=== PATIENT | female | born 1950 | race Caucasian/White ===

== ENCOUNTER 2017-12-12 11:26 | Outpatient (CLI) | payer MEDICARE ==
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
== END 2017-12-12 11:27 | disposition home or self-care (01) ==
LOC: MRI 11:26
PROVIDERS: ATTEND Orthopaedic Surgery
DX: M47.896 Other spondylosis, lumbar region (principal); M99.83 Other biomechanical lesions of lumbar region
CPT/HCPCS: 72148

== ENCOUNTER 2018-11-16 13:47 | Inpatient (IN) | payer MEDICARE, OTHER ==
[~2018-11-16 13:47] MED LIST: ISOVUE-370 76%-LOCM 1 ML ONE; Iopamidol 370 76% 50 ML VIAL FS ONE
[2018-11-16] MEDS ORDERED: Morphine 4 MG/ML VIAL ONE (14:43)
[2018-11-16] MEDS ORDERED: Ondansetron PF 4 MG/2 ML Vial ONE ×2 (14:43→19:02)
[2018-11-16 15:08] LABS: #Basophils 0.1 thou/uL (0.0-0.2); #Eosinphils 0.9 thou/uL (0.0-0.7); #Lymphocytes 0.9 thou/uL (1.20-3.40); #Monocytes 0.7 thou/uL (0.11-0.59); #Neutrophils 9.6 thou/uL (1.40-6.50); %Basophils 0.5 % (0.0-1.0); %Eosinophils 7.2 % (0.0-10.0); %Lymphocytes 7.1 % (21.0-51.0); %Monocytes 5.4 % (0.0-10.0); %Neutrophils 79.9 % (42.0-75.0); Hemoglobin 15.6 g/dL (12.0-16.0); Mean Corpuscular HGB CONC 34.9 g/dL (32.0-36.0); Mean Corpuscular Hemoglobin 34.3 pg (27.0-31.0); Mean Corpuscular Volume 98.4 fL (78.0-98.0); Platelet Count 212 thou/uL (130-400); Red Blood Cell (RBC) Count 4.56 mill/uL (4.20-5.40)
[2018-11-16 16:56] LABS: Albumin 4.5 g/dL (3.4-4.8)
[2018-11-16 16:57] LABS: Chloride 94 mmol/L (98-107); Potassium 4.1 mmol/L (3.5-5.1); Sodium 130 mmol/L (136-145)
[2018-11-16 16:58] LABS: Calcium 9.8 mg/dL (7.8-10.44); Glucose 424 mg/dL (80-115)
[2018-11-16 16:59] LABS: Protein, Total 7.5 g/dL (6.0-8.3)
[2018-11-16 17:00] LABS: Anion Gap 16 mmol/L (10-20); Bilirubin, Total 0.7 mg/dL (0.2-1.2); Carbon Dioxide 24 mmol/L (23-31)
[2018-11-16 17:01] LABS: Alkaline Phosphatase 128 U/L (40-150)
[2018-11-16 17:02] LABS: Calc. Creatinine Clearance 0 mL/min (70-130); Estimated GFR-MDRD 54
[2018-11-16 17:03] LABS: BUN (Urea Nitrogen) 9 mg/dL (9.8-20.1)
[2018-11-16 17:04] LABS: ALT (SGPT) 23 U/L (8-55); AST (SGOT) 16 U/L (5-34); Lipase 18 U/L (8-78)
--- NOTE | 2018-11-16 18:02 | RAD ---
PORTABLE CHEST: History: Nausea, vomiting, rectal bleeding. FINDINGS: Heart size is within normal limits. There are atherosclerotic changes of the aorta. The lungs are kristen ar of infiltrative process. No significant bony findings. IMPRESSION: No active intrathoracic disease. POS: [facility]
--- NOTE | 2018-11-16 18:11 | CT ---
ABDOMEN CT WITH CONTRAST PELVIC CT WITH CONTRAST: History: Intermittent rectal bleeding x 5 days. Left lower quadrant cramping. FINDINGS: ABDOMEN CT: Lung bases are clear. Normal heart size. Normal caliber aorta. Patent portal vein. Unremarkable gallbladder. Liver, spleen, pancreas, and adrenal glands have appropriate enhancement. No gastrohepatic, retrocrural or periportal lymphadenopathy. Symmetric enhancement of the kidneys. Bilaterally, no obstructive uropathy. No mesenteric mass, lymphadenopathy, or free air. There is fluid tracking along the left pericolic gu tter. Gastric mucosa, duodenum, and multiple normal caliber small bowel loops. Unremarkable ileocecal junct ion. Normal caliber appendix. There is mucosal thickening, bowel wall thickening, and pericolonic fat stranding involving the distal transverse colon, splenic flexure, and proximal to mid descending col on. Long segment involvement favors an infectious colitis. No associated obstruction. Distally, the c olon is decompressed. CT PELVIS: Uterus is surgically absent. No pelvic mass, lymphadenopathy, free air or free fluid. Limited evaluat ion of the pelvis due to beam attenuation artifact from bilateral hip prostheses. OSSEOUS STRUCTURES: No lytic or blastic lesions. IMPRESSION: 1. Left colon colitis. Given the distribution an infectious process is favored. Inflammatory or ische zach processes are less favored but cannot be entirely excluded. Colonoscopy when clinically warranted . 2. Normal caliber appendix. POS: [facility]
[2018-11-16 18:19] LABS: Prothrombin Time 13.1 SEC (12.0-14.7)
[2018-11-16] MEDS ORDERED: HumaLOG 300 UNITS/3 ML VIAL SC PRN (20:14)
[2018-11-16] MEDS ORDERED: Dextrose 5% in Water 1,000 ML IV PRN (20:14)
[2018-11-16] MEDS ORDERED: Dextrose 50% Abboject 50 ML SYRINGE SLOW IVP PRN (20:14)
[2018-11-16] MEDS ORDERED: metroNIDAZOLE 500 MG/100 ML BAG ONE (20:15)
--- NOTE | 2018-11-16 21:26 | PDOC.EVN ---
Event Note - Event Note Event Note: [id number] P dictated.
[2018-11-16] MEDS ORDERED: Promethazine HCl 25 MG/ML VIAL IM/IV SCH (22:30)
[2018-11-16] MEDS: Famotidine/PF 20 mg/2ml Vial SLOW IVP SCH (22:35)
[2018-11-16] MEDS: Cefepime 2 GM in Sodium Chloride 0.9% 100 ML IVPB SCH (22:55)
[2018-11-17] MEDS: metroNIDAZOLE 500 MG in Premix Bag 1 BAG IVPB SCH ×4 (00:21→17:02)
--- NOTE | 2018-11-17 00:39 | HP ---
CHIEF COMPLAINT: Rectal bleeding. HISTORY OF PRESENT ILLNESS: Ms. Hendrix is a 68-year-old female, with past medical history of osteoarthritis, diabetes, hyperlipidemia, hypertension, among others, presents to the emergency room with lower abdominal pain and rectal bleeding. The pain is more worse on the left side. The patient also reported subjective fever. She is not on any blood thinners. PAST MEDICAL HISTORY: 1. Diabetes mellitus. 2. Osteoarthritis. 3. Hyperlipidemia. 4. Hypertension. 5. Asthma. PAST SURGICAL HISTORY: 1. Lumbar L1-S1 ablation. 2. Right hip replacement. 3. Hysterectomy. 4. Depression. SOCIAL HISTORY: She drinks 1 drink a day alcohol; use marijuana, for pain. ALLERGIES: TO PENICILLIN. HOME MEDICATIONS: Please see home medication reconciliation form for updated medications. FAMILY HISTORY: Reviewed and noncontributory. REVIEW OF SYSTEMS: Review of 14 systems negative except what is mentioned in History of Present Illness. PHYSICAL EXAMINATION: GENERAL: The patient is awake, alert, in moderate distress. VITAL SIGNS: Blood pressure is 146/90, pulse is 101, respiratory rate is 20, temperature is 98.7. HEAD AND NECK: Normocephalic, atraumatic. Neck is supple. No JVD. CHEST: Fair bilateral air entry. HEART: S1, S2. Regular. ABDOMEN: Soft with lower abdominal tenderness. Bowel sounds present. NEUROLOGIC: Awake, alert, oriented x3. PSYCH: Normal mood. EXTREMITIES: No clubbing or cyanosis. LABORATORY DATA: WBC count is 12.0, hemoglobin 15.6, platelets 212. Sodium is 130, potassium is 4.1, BUN is 9, creatinine 1.0. INR is 1.0. CT abdomen and pelvis showed left colon colitis. Differential diagnosis is inflammatory versus infectious. ASSESSMENT: 1. Acute lower gastrointestinal bleeding probably secondary to infectious/inflammatory colitis. 2. Acute colitis. 3. Diabetes mellitus with hyperglycemia. 4. Hypertension. 5. Hyperlipidemia. PLAN: 1. Admit. 2. Keep n.p.o. 3. IV antibiotics. 4. IV fluids. 5. Consult GI for evaluation and further recommendations. 6. Reconcile home medications. 7. DVT prophylaxis, SCDs/early ambulation. 8. Expected length of stay, 2 midnights or more. Job ID: [id number]
[2018-11-17] MEDS: Sodium Chloride 0.9% 1,000 ML IV SCH ×3 (01:00→16:28)
[2018-11-17 06:05] LABS: Anion Gap 14 mmol/L (10-20); BUN (Urea Nitrogen) 9 mg/dL (9.8-20.1); Calc. Creatinine Clearance 101 mL/min (70-130); Calcium 8.5 mg/dL (7.8-10.44); Carbon Dioxide 22 mmol/L (23-31); Chloride 100 mmol/L (98-107); Estimated GFR-MDRD 69; Glucose 254 mg/dL (80-115); Sodium 132 mmol/L (136-145)
[2018-11-17 06:20] LABS: #Eosinphils 0.7 thou/uL (0.0-0.7); #Lymphocytes 1.1 thou/uL (1.20-3.40); #Monocytes 0.7 thou/uL (0.11-0.59); %Basophils 0.3 % (0.0-1.0); %Eosinophils 7.7 % (0.0-10.0); %Lymphocytes 11.3 % (21.0-51.0); %Monocytes 7.6 % (0.0-10.0); %Neutrophils 73.2 % (42.0-75.0); Mean Corpuscular HGB CONC 34.9 g/dL (32.0-36.0); Mean Corpuscular Hemoglobin 33.7 pg (27.0-31.0); Mean Corpuscular Volume 96.6 fL (78.0-98.0); Mean Platelet Volume 7.4 fL (7.4-10.4); Platelet Count 172 thou/uL (130-400); RBC Distribution Width 11.8 % (11.5-14.5); Red Blood Cell (RBC) Count 4.15 mill/uL (4.20-5.40); White Blood Cell (WBC) Count 9.5 thou/uL (4.8-10.8)
[2018-11-17] MEDS: Cefepime 2 GM in Sodium Chloride 0.9% 100 ML IVPB SCH ×2 (08:57→20:54)
[2018-11-17] MEDS: Famotidine/PF 20 mg/2ml Vial SLOW IVP SCH (08:58)
[2018-11-17] MEDS ORDERED: Prevnar 13-Val Conj/PF 0.5 ML SYRINGE IM ONE (09:00)
--- NOTE | 2018-11-17 14:49 | PDOC.HOSPP ---
- Subjective Subjective: Seen and examined. Denies further bleeding sense admission. Left-sided lower quadrant abdominal pain improved. Patient states she had G.I. bleeding in the past though it was not as severe as this. Patient states that she has had colonoscopies every five years and has had several polyps removed in the past, states she is due for a colonoscopy in the next month. - Objective Vital Signs & Weight: Vital Signs (12 hours) Temp Pulse Resp BP Pulse Ox 11/17/18 07:35 99.4 F 75 16 138/68 96 11/17/18 04:00 97.7 F 77 18 119/66 99 Weight Admit Weight 218 lb 4.122 oz Weight 218 lb 4.122 oz I&O: 11/16/18 11/17/18 11/18/18 06:59 06:59 06:59 Intake Total 989 Balance 989 Result Diagrams: 11/17/18 05:37 11/17/18 05:37 Additional Labs: Accuchecks 11/17/18 12:39 POC Glucose 235 H Hospitalist ROS - Review of Systems All other systems reviewed; all pertinent +/- noted in HPI/Subj - Medication Medications: Active Medications Generic Name Dose Route Start Last Admin Trade Name Freq PRN Reason Stop Dose Admin Famotidine 20 mg 11/16/18 21:00 11/17/18 08:58 Pepcid SLOW IVP 20 mg Q12HR BAUTISTA Administration Sodium Chloride 1,000 mls @ 100 mls/hr 11/16/18 20:15 11/17/18 13:43 Normal Saline 0.9% IV 1,000 mls .Q10H BAUTISTA Administration Cefepime HCl 2 gm/ Sodium 100 mls @ 200 mls/hr 11/16/18 21:00 11/17/18 08:57 Chloride IVPB 100 mls Q12HR BAUTISTA Administration Metronidazole 500 mg/ Device 100 mls @ 100 mls/hr 11/16/18 23:59 11/17/18 12: 28 IVPB 100 mls Q6HR BAUTISTA Administration - Exam General Appearance: NAD, awake alert Eye: anicteric sclera ENT: no oropharyngeal lesions, moist mucosa Neck: supple, symmetric, no lymphadenopathy Heart: no murmur, no gallops, no rubs Respiratory: CTAB, no wheezes, no rales Gastrointestinal: soft, non-distended, normal bowel sounds, tender to palpation (Left lower quadrant) Extremities: no edema Skin: no rashes Skin - other findings: Skin lesions on face, healing furuncles Neurological: cranial nerve grossly intact, no weakness, no focal deficits Musculoskeletal: no muscle wasting Psychiatric: normal affect, A&O x 3 Hosp A/P (1) Colitis Code(s): K52.9 - NONINFECTIVE GASTROENTERITIS AND COLITIS, UNSPECIFIED Status : Acute (2) Diarrhea Code(s): R19.7 - DIARRHEA, UNSPECIFIED Status: Acute (3) GI bleed Code(s): K92.2 - GASTROINTESTINAL HEMORRHAGE, UNSPECIFIED Status: Acute (4) Diabetes mellitus, insulin dependent (IDDM), uncontrolled Code(s): E11.65 - TYPE 2 DIABETES MELLITUS WITH HYPERGLYCEMIA; Z79.4 - S[facility]IVING (CURRENT) USE OF INSULIN Status: Acute (5) HTN (hypertension) Code(s): I10 - ESSENTIAL (PRIMARY) HYPERTENSION Status: Acute (6) HLD (hyperlipidemia) Code(s): E78.5 - HYPERLIPIDEMIA, UNSPECIFIED Status: Acute - Plan Plan: medical unit with telemetry gastroenterology consultation, recommendations appreciated PPI may require endoscopy for definitive diagnosis/treatment of G.I. bleeding hemoglobin has not significantly dropped sense arrival infectious causes of diarrhea ordered start long and short acting insulin for glucose control continue other home medications is able replace electrolytes as needed
[2018-11-17] MEDS ORDERED: HumaLOG 300 UNITS/3 ML VIAL SC PRN ×2 (14:50)
[2018-11-17] MEDS: Mometasone/Formoterol 120 PUFF INHALER INH SCH (18:38)
[2018-11-17] MEDS: Atorvastatin Calcium 20 MG TAB PO SCH (20:53)
[2018-11-17] MEDS: Insulin Glargine 25 UNITS in Pre-Filled Syringe 1 EACH SC SCH (20:54)
[2018-11-17] MEDS ORDERED: INSULIN DETEMIR 25 UNIT SQ SCH (21:00)
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
[2018-11-18] MEDS: metroNIDAZOLE 500 MG in Premix Bag 1 BAG IVPB SCH ×5 (01:46→23:34)
[2018-11-18] MEDS: Levothyroxine 150 MCG TAB PO SCH (05:31)
[2018-11-18] MEDS: Sodium Chloride 0.9% 1,000 ML IV SCH ×2 (05:32→21:01)
[2018-11-18] MEDS: Mometasone/Formoterol 120 PUFF INHALER INH SCH ×2 (07:34→18:33)
[2018-11-18] MEDS: Losartan 25 MG TAB PO SCH (08:46)
[2018-11-18] MEDS: Insulin Glargine 25 UNITS in Pre-Filled Syringe 1 EACH SC SCH ×2 (08:47→20:53)
[2018-11-18] MEDS: Cefepime 2 GM in Sodium Chloride 0.9% 100 ML IVPB SCH ×2 (08:47→20:53)
[2018-11-18] MEDS ORDERED: Non-Formulary Item 1 EACH (Omeprazole [Omeprazole] 40 MG) PO SCH (09:00)
[2018-11-18] MEDS: Ondansetron PF 4 MG/2 ML Vial IVP PRN (11:35)
[2018-11-18 11:56] LABS: #Eosinphils 0.7 thou/uL (0.0-0.7); #Lymphocytes 0.7 thou/uL (1.20-3.40); #Monocytes 0.4 thou/uL (0.11-0.59); %Basophils 0.6 % (0.0-1.0); %Eosinophils 10.8 % (0.0-10.0); %Lymphocytes 9.6 % (21.0-51.0); %Monocytes 6.4 % (0.0-10.0); %Neutrophils 72.6 % (42.0-75.0); Hemoglobin 13.2 g/dL (12.0-16.0); Mean Corpuscular HGB CONC 34.6 g/dL (32.0-36.0); Mean Corpuscular Hemoglobin 34.4 pg (27.0-31.0); Mean Corpuscular Volume 99.6 fL (78.0-98.0); Mean Platelet Volume 7.1 fL (7.4-10.4); Platelet Count 209 thou/uL (130-400); RBC Distribution Width 11.9 % (11.5-14.5); Red Blood Cell (RBC) Count 3.84 mill/uL (4.20-5.40); White Blood Cell (WBC) Count 6.9 thou/uL (4.8-10.8)
[2018-11-18 12:29] LABS: ALT (SGPT) 19 U/L (8-55); AST (SGOT) 15 U/L (5-34); Albumin 3.7 g/dL (3.4-4.8); Alkaline Phosphatase 91 U/L (40-150); Anion Gap 10 mmol/L (10-20); BUN (Urea Nitrogen) 7 mg/dL (9.8-20.1); Bilirubin, Total 0.4 mg/dL (0.2-1.2); Calc. Creatinine Clearance 87 mL/min (70-130); Calcium 8.8 mg/dL (7.8-10.44); Carbon Dioxide 26 mmol/L (23-31); Chloride 103 mmol/L (98-107); Estimated GFR-MDRD 58; Globulin 2.2 g/dL (2.4-3.5); Glucose 269 mg/dL (80-115); Potassium 4.3 mmol/L (3.5-5.1); Protein, Total 5.9 g/dL (6.0-8.3); Sodium 135 mmol/L (136-145)
--- NOTE | 2018-11-18 15:58 | PDOC.HOSPP ---
- Subjective Encounter Date: 11/18/18 Encounter Time: 15:57 Subjective: One small, hard, formed stool with approx one tablespoon bright red blood passed today, preceded by some mild LLQ abdominal soreness/cramp. Sample sent to lab. Shiga/Camp negative. Other studies pending. Patient endorses nausea, one episode emesis this morning. No CP/SOB. Asthma stable. BG persistently elevated - Objective Vital Signs & Weight: Vital Signs (12 hours) Temp Pulse Resp BP BP Pulse Ox 11/18/18 12:00 97.8 F 79 18 115/78 95 11/18/18 07:55 98.8 F 83 14 122/63 95 11/18/18 07:34 90 16 95 11/18/18 04:00 97.9 F 86 18 102/60 93 L Weight Admit Weight 218 lb 4.122 oz Weight 218 lb 4.122 oz I&O: 11/17/18 11/18/18 11/19/18 06:59 06:59 06:59 Intake Total 989 1316 Output Total 450 Balance 989 866 Result Diagrams: 11/18/18 11:41 11/18/18 11:41 Additional Labs: Accuchecks 11/18/18 11/17/18 11/17/18 06:01 23:47 18:27 POC Glucose 277 H 279 H 258 H 11/17/18 11/16/18 05:34 20:57 POC Glucose 229 H 371 H Hospitalist ROS - Medication Medications: Active Medications Generic Name Dose Route Start Last Admin Trade Name Freq PRN Reason Stop Dose Admin Atorvastatin Calcium 20 mg 11/17/18 21:00 11/17/18 20:53 Lipitor PO 20 mg HS BAUTISTA Administration Cefepime HCl 2 gm/ Sodium 100 mls @ 200 mls/hr 11/16/18 21:00 11/18/18 08:47 Chloride IVPB 100 mls Q12HR BAUTISTA Administration Metronidazole 500 mg/ Device 100 mls @ 100 mls/hr 11/16/18 23:59 11/18/18 11: 35 IVPB 100 mls Q6HR BAUTISTA Administration Sodium Chloride 1,000 mls @ 70 mls/hr 11/17/18 14:51 11/18/18 05:32 Normal Saline 0.9% IV 1,000 mls .[id number] BAUTISTA Administration Insulin Glargine 25 units/ 0.25 mls @ 0 mls/hr 11/17/18 21:00 11/17/18 20:54 Miscellaneous Medication SC 0.25 mls HS BAUTISTA Administration Insulin Glargine 25 units/ 0.25 mls @ 0 mls/hr 11/18/18 09:00 11/18/18 08:47 Miscellaneous Medication SC 0.25 mls QAM BAUTISTA Administration Levothyroxine Sodium 150 mcg 11/18/18 06:00 11/18/18 05:31 Synthroid PO 150 mcg 0600 BAUTISTA Administration Losartan Potassium 100 mg 11/18/18 09:00 11/18/18 08:46 Cozaar PO 100 mg DAILY BAUTISTA Administration Mometasone Furoate/Formoterol Fumar 2 puff 11/17/18 18:30 11/18/18 07:34 Dulera 200 Mcg/5 Mcg Inhaler INH 2 puff BID-RT BAUTISTA Administration Ondansetron HCl 4 mg 11/16/18 20:07 11/18/18 11:35 Zofran IVP 4 mg Q6H PRN Administration Nausea/Vomiting Pantoprazole Sodium 40 mg 11/18/18 09:00 11/18/18 08:46 Protonix PO 40 mg DAILY BAUTISTA Administration Venlafaxine HCl 75 mg 11/18/18 09:00 11/18/18 08:46 Effexor PO 75 mg DAILY BAUTISTA Administration - Exam General - other findings: Fairly comfortable, slightly nauseated Eye: anicteric sclera ENT: no oropharyngeal lesions, dry oral mucosa Neck: supple Heart: RRR Respiratory: CTAB Gastrointestinal: soft, non-distended, no guarding Gastrointestinal - other findings: mild LLQ tenderness Extremities: no edema Skin: no rashes Neurological: normal sensation to touch, no new deficit Psychiatric: normal affect, normal behavior, A&O x 3 Hosp A/P (1) Colitis Code(s): K52.9 - NONINFECTIVE GASTROENTERITIS AND COLITIS, UNSPECIFIED Status : Acute (2) Diabetes mellitus, insulin dependent (IDDM), uncontrolled Code(s): E11.65 - TYPE 2 DIABETES MELLITUS WITH HYPERGLYCEMIA; Z79.4 - HALFWAY (CURRENT) USE OF INSULIN Status: Acute (3) Diarrhea Code(s): R19.7 - DIARRHEA, UNSPECIFIED Status: Acute (4) GI bleed Code(s): K92.2 - GASTROINTESTINAL HEMORRHAGE, UNSPECIFIED Status: Acute (5) HLD (hyperlipidemia) Code(s): E78.5 - HYPERLIPIDEMIA, UNSPECIFIED Status: Acute (6) HTN (hypertension) Code(s): I10 - ESSENTIAL (PRIMARY) HYPERTENSION Status: Acute - Plan GI - appreciate Dr. Foster's care. Thus far infection workup (Shiga/Camp) negative. Continue IV fluid support, NS 75/hr, liquid diet. On empiric abx with cefepime and flagyl. WBC normalized. Abx could be contributing to current nausea. Ischemic colitis remains on differential. She endorses pain Saturday especially, which would be consistent. FEN - Electrolytes noted, stable, recheck in AM. Endo - discussed insulin regimen, had been using 50u levemir qam. Presently 25bid. At home supposed to use premeal Novolog, unable to afford. Continue correctional as not yet on structured diet, discussed endocrine and PCP follow up in detail. approx 25 minutes at bedside discussing case with her, questions answered.
[2018-11-18] MEDS ORDERED: Polyethylene Glycol 3350 17 GM Packet PO SCH (18:00)
--- NOTE | 2018-11-18 18:23 | PRG ---
DATE OF SERVICE: 11/18/2018 REASON FOR CONSULTATION: Hematochezia, abnormal GI imaging. SUBJECTIVE: The patient did have a smaller solid bowel movement earlier today that was associated with the passage of bright red blood per rectum. She did experience some increased pain with the passage of the harder stool, but then returned to her baseline left lower quadrant/left-sided abdominal pain. She does endorse increased nausea/queasiness throughout most of the day today, but only had 1 episode of a small amount of nonbloody emesis. When compared to on admission, she states that her pain is improved but does still continue in the left lower quadrant with radiation to the periumbilical and left upper quadrant. She currently denies any fevers, chills, dysphagia, odynophagia, hematemesis, melena, or diarrhea. OBJECTIVE: VITAL SIGNS: Temperature 97.2, pulse 72, blood pressure 138/68, respiratory rate 18, and saturating 94% on room air. GENERAL: The patient is lying in bed, in no acute distress. Alert and oriented x4. CARDIOVASCULAR: Regular rate and rhythm. RESPIRATORY: Clear to auscultation bilaterally. ABDOMEN: Hypoactive bowel sounds. Soft. Mild abdominal distention. Tenderness to palpation in the left upper and left lower abdominal quadrants. EXTREMITIES: No cyanosis, clubbing, or edema. LABORATORY DATA: CBC with a white blood cell count of 6.9, hemoglobin 13.2, hematocrit 38.2, and platelets 209. Chemistry with a sodium of 135, potassium 4.3, chloride 103, CO2 of 26, BUN 7, creatinine 0.95, and glucose 269. IMAGING DATA: No current GI imaging is available for review. ASSESSMENT AND PLAN: The patient is a 68-year-old female with past medical history of diabetes, osteoarthritis, hyperlipidemia, hypertension, asthma, and possible small-bowel obstruction in her 20s, presenting with hematochezia and imaging concerning for colitis. Hematochezia/colitis: The patient initially presented with a longstanding history of constipation that had been present for the last year, but approximately 5 to 6 days prior to admission, had increased abdominal pain associated with a harder to pass stool as well as hematochezia that continued over the course of the next 3 to 4 days culminating in a larger, almost grossly bloody bowel movement on November 16, 2018. Since admission to the hospital, she has only had 1 solid stool that was associated with a minimal amount of bright red blood per rectum earlier today. She states that her abdominal pain is somewhat improved with antibiotic administration, but is relatively unchanged in terms of location. At this time, the possibility of an infectious colitis is less likely given the fact that she has had difficulty having a bowel movement during this admission, which seems counterintuitive from an infectious etiology rather the differential could include inflammatory bowel disease, ischemic colitis, diverticulitis with possible diverticular bleeding and/or possible gastrointestinal neoplasm. RECOMMENDATIONS: 1. We would continue to trend her H and H and transfuse as necessary to maintain an H and H of 09/21. 2. Continue to monitor clinically for signs of active GI bleeding. 3. We will follow up on the infectious stool studies for possible pathogen. 4. We will continue the patient on a clear liquid diet with the possibility of prepping for colonoscopy tomorrow in anticipation of the actual colonoscopy on , November 20. 5. We would continue the antibiotics now given the possibility of diverticulitis in the left lower quadrant. We will continue to follow. Please call with any questions. Job ID: [id number]
[2018-11-18] MEDS: Atorvastatin Calcium 20 MG TAB PO SCH (20:52)
[2018-11-19] MEDS: Levothyroxine 150 MCG TAB PO SCH (05:42)
[2018-11-19] MEDS: metroNIDAZOLE 500 MG in Premix Bag 1 BAG IVPB SCH ×4 (05:42→23:32)
[2018-11-19 05:46] LABS: #Eosinphils 0.8 thou/uL (0.0-0.7); #Lymphocytes 0.9 thou/uL (1.20-3.40); #Monocytes 0.5 thou/uL (0.11-0.59); #Neutrophils 5.1 thou/uL (1.40-6.50); %Basophils 0.6 % (0.0-1.0); %Eosinophils 11.1 % (0.0-10.0); %Lymphocytes 12.8 % (21.0-51.0); %Monocytes 6.7 % (0.0-10.0); %Neutrophils 68.8 % (42.0-75.0); Hemoglobin 12.3 g/dL (12.0-16.0); Mean Corpuscular HGB CONC 33.2 g/dL (32.0-36.0); Mean Corpuscular Hemoglobin 33.1 pg (27.0-31.0); Mean Corpuscular Volume 99.9 fL (78.0-98.0); Mean Platelet Volume 7.2 fL (7.4-10.4); Platelet Count 206 thou/uL (130-400); RBC Distribution Width 11.9 % (11.5-14.5); Red Blood Cell (RBC) Count 3.73 mill/uL (4.20-5.40); White Blood Cell (WBC) Count 7.4 thou/uL (4.8-10.8)
[2018-11-19 06:08] LABS: Anion Gap 9 mmol/L (10-20); BUN (Urea Nitrogen) 5 mg/dL (9.8-20.1); Calc. Creatinine Clearance 113 mL/min (70-130); Calcium 8.5 mg/dL (7.8-10.44); Carbon Dioxide 28 mmol/L (23-31); Chloride 104 mmol/L (98-107); Estimated GFR-MDRD 73; Glucose 99 mg/dL (80-115); Magnesium 1.8 mg/dL (1.6-2.6); Potassium 3.6 mmol/L (3.5-5.1); Sodium 137 mmol/L (136-145)
[2018-11-19] MEDS: Mometasone/Formoterol 120 PUFF INHALER INH SCH ×2 (06:50→18:34)
[2018-11-19] MEDS: Losartan 25 MG TAB PO SCH (08:38)
[2018-11-19] MEDS: Cefepime 2 GM in Sodium Chloride 0.9% 100 ML IVPB SCH ×2 (08:39→21:26)
[2018-11-19] MEDS: Insulin Glargine 25 UNITS in Pre-Filled Syringe 1 EACH SC SCH ×2 (08:40→21:27)
[2018-11-19] MEDS: Polyethylene Glycol 3350 17 GM Packet PO SCH (08:40)
[2018-11-19] MEDS: Sodium Chloride 0.9% 1,000 ML IV SCH ×2 (11:24→21:38)
[2018-11-19 15:29] VITALS: BMI 34.1
[2018-11-19] MEDS ORDERED: HumaLOG 300 UNITS/3 ML VIAL SC PRN (15:46)
--- NOTE | 2018-11-19 16:00 | PDOC.HOSPP ---
- Subjective Encounter Date: 11/19/18 Encounter Time: 16:00 Subjective: f/u for hematochezia with plans for bowel prep and colonoscopy in am 11/20/18. H/ H trend stable and no requirement for PRBC's. - Objective Vital Signs & Weight: Vital Signs (12 hours) Temp Pulse Resp BP Pulse Ox 11/19/18 15:33 97.5 F L 82 18 144/69 H 96 11/19/18 11:55 97.8 F 78 18 142/69 H 11/19/18 07:22 98.4 F 75 18 127/71 95 11/19/18 06:50 71 14 98 11/19/18 04:00 98.5 F 76 18 106/58 L 94 L Weight Admit Weight 218 lb 4.122 oz Weight 230 lb 14.821 oz I&O: 11/18/18 11/19/18 11/20/18 06:59 06:59 06:59 Intake Total 1316 1680 Output Total 450 1700 Balance 866 -20 Result Diagrams: 11/19/18 05:05 11/19/18 05:05 Additional Labs: Accuchecks 11/19/18 11/18/18 11/18/18 12:39 21:13 18:15 POC Glucose 136 H 51 L* 304 H 11/18/18 12:05 POC Glucose 251 H Microbiology 11/18/18 10:24 Stool Campylobacter Antigen Assay - Final 11/18/18 10:24 Stool Shiga Toxin Test - Final 11/18/18 10:24 Stool Stool Culture - Preliminary Laboratory Tests 11/16/18 11/17/18 11/18/18 14:58 05:37 11:41 Hgb 15.6 14.0 13.2 Radiology Reviewed by me: Yes (CT abd - L-sided colitis) EKG Reviewed by me: Yes (Tele - SR) Hospitalist ROS - Medication Medications: Active Medications Generic Name Dose Route Start Last Admin Trade Name Freq PRN Reason Stop Dose Admin Atorvastatin Calcium 20 mg 11/17/18 21:00 11/18/18 20:52 Lipitor PO 20 mg HS BAUTISTA Administration Cefepime HCl 2 gm/ Sodium 100 mls @ 200 mls/hr 11/16/18 21:00 11/19/18 08:39 Chloride IVPB 100 mls Q12HR BAUTISTA Administration Metronidazole 500 mg/ Device 100 mls @ 100 mls/hr 11/16/18 23:59 11/19/18 13: 08 IVPB 100 mls Q6HR BAUTISTA Administration Sodium Chloride 1,000 mls @ 70 mls/hr 11/17/18 14:51 11/19/18 11:24 Normal Saline 0.9% IV Not Given .[id number] BAUTISTA Insulin Glargine 25 units/ 0.25 mls @ 0 mls/hr 11/17/18 21:00 11/18/18 20:53 Miscellaneous Medication SC 0.25 mls HS BAUTISTA Administration Insulin Glargine 25 units/ 0.25 mls @ 0 mls/hr 11/18/18 09:00 11/19/18 08:40 Miscellaneous Medication SC 0.25 mls QAM BAUTISTA Administration Levothyroxine Sodium 150 mcg 11/18/18 06:00 11/19/18 05:42 Synthroid PO 150 mcg 0600 BAUTISTA Administration Losartan Potassium 100 mg 11/18/18 09:00 11/19/18 08:38 Cozaar PO 100 mg DAILY BAUTISTA Administration Mometasone Furoate/Formoterol Fumar 2 puff 11/17/18 18:30 11/19/18 06:50 Dulera 200 Mcg/5 Mcg Inhaler INH 2 puff BID-RT BAUTISTA Administration Ondansetron HCl 4 mg 11/16/18 20:07 11/18/18 11:35 Zofran IVP 4 mg Q6H PRN Administration Nausea/Vomiting Pantoprazole Sodium 40 mg 11/18/18 09:00 11/19/18 08:39 Protonix PO 40 mg DAILY BAUTISTA Administration Polyethylene Glycol 17 gm 11/19/18 09:00 11/19/18 08:40 Miralax PO 17 gm DAILY BAUTISTA Administration Venlafaxine HCl 75 mg 11/18/18 09:00 11/19/18 08:38 Effexor PO 75 mg DAILY BAUTISTA Administration - Exam General Appearance: NAD, awake alert Eye: PERRL, anicteric sclera ENT: normocephalic atraumatic, no oropharyngeal lesions Neck: supple, symmetric, no JVD, no thyromegaly, no lymphadenopathy Heart: RRR, no murmur, no gallops, no rubs, normal peripheral pulses Respiratory: CTAB, no wheezes, no rales, no ronchi, normal chest expansion Gastrointestinal: soft, non-distended, normal bowel sounds, no palpable masses Gastrointestinal - other findings: mild TTP in LLQ Extremities: no cyanosis, no clubbing, no edema Skin: normal turgor, no lesions Neurological: cranial nerve grossly intact, no focal deficits, no new deficit Musculoskeletal: normal tone, normal strength Psychiatric: normal affect, A&O x 3 Hosp A/P (1) Hematochezia Code(s): K92.1 - MELENA Status: Acute Plan: Suspect due to #1, H/H trend stable, see below for mgmt (2) Colitis Code(s): K52.9 - NONINFECTIVE GASTROENTERITIS AND COLITIS, UNSPECIFIED Status : Acute Plan: Presumed infectious, continue Cefepime/Flagyl, pain control, bowel prep for colonoscopy 11/20 (3) Diabetes mellitus, insulin dependent (IDDM), uncontrolled Code(s): E11.65 - TYPE 2 DIABETES MELLITUS WITH HYPERGLYCEMIA; 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 Status: Chronic Plan: Insulin requiring, ISS, Lantus, ADA (4) HTN (hypertension) Code(s): I10 - ESSENTIAL (PRIMARY) HYPERTENSION Status: Chronic Qualifiers: Hypertension type: essential hypertension Qualified Code(s): I10 - Essential (primary) hypertension Plan: Resume home BP regimen and monitor trend (5) Hypothyroidism Code(s): E03.9 - HYPOTHYROIDISM, UNSPECIFIED Status: Chronic Plan: Resume Levothyroxine 150mcg daily - Plan continue antibiotics, out of bed/ambulate, DVT proph w/SCDs Stable currently Bowel prep for colonoscopy 11/20 Continue Cefepime/Flagyl Continue Protonix 40mg daily Continue IVF's NPO after MN Likely home in 24h after colonoscopy
--- NOTE | 2018-11-19 17:58 | PRG ---
DATE OF SERVICE: 11/19/2018 REASON FOR CONSULTATION: Hematochezia, abnormal GI imaging, and left lower quadrant abdominal pain. SUBJECTIVE: The patient did well overnight with no acute events or problems. She states that this morning her left lower quadrant pain has significantly improved and is now only mildly tender to palpation in the region. She has not had any further bowel movements since the small solid bloody bowel movement yesterday. She also states that her nausea has also improved with no episodes of emesis during the day as well and minimal administration of p.r.n. antiemetics. Otherwise, she denies any fevers, chills, dysphagia, odynophagia, hematemesis, melena, or diarrhea. OBJECTIVE: VITAL SIGNS: Temperature 97.5, pulse 82, blood pressure 144/69, respiratory rate 18, and saturating 96% on room air. GENERAL: The patient was lying in bed, in no acute distress. Alert and oriented x4. CARDIOVASCULAR: Regular rate and rhythm. RESPIRATORY: Clear to auscultation bilaterally. ABDOMEN: Hypoactive bowel sounds. Soft. Mild abdominal distention. Mild tenderness to palpation in the left lower quadrant. EXTREMITIES: No cyanosis, clubbing, or edema. LABORATORY DATA: CBC with a white blood cell count of 7.4, hemoglobin 12.3, hematocrit 37.2, and platelets 206. Chemistry with a sodium of 137, potassium 3.6, chloride 104, CO2 of 28, BUN 5, creatinine 0.78, and glucose 99. IMAGING DATA: No current GI imaging is available for review. ASSESSMENT AND PLAN: The patient is a 68-year-old female with past medical history of diabetes, osteoarthritis, hyperlipidemia, hypertension, asthma, and possible small bowel obstruction in her 20s, presenting with hematochezia, left lower quadrant abdominal pain and CT imaging concerning for colitis. Hematochezia/colitis: The patient initially presented with complaints of hematochezia, left lower quadrant abdominal pain, and diarrhea shortly before admission with the use of laxatives. However, with her increasing pain, it prompted her to seek healthcare assistance and while in the ER, was noted to have a moderately elevated white blood cell count in addition to a CT scan showing thickening of the splenic flexure in the proximal colon. She did have 1 solid bloody bowel movement during this hospitalization, but has not had any further episodes since. Her white blood cell count has down trended to normal and infectious stool workup thus far has been negative. At this time, the possibility of an infectious colitis is less likely given the lack of diarrhea on clinical examination and negative stool studies thus far. At this point, an inflammatory versus ischemic type event is more likely with diverticulitis still within the differential given her left lower quadrant abdominal pain, even though it is not reflected on the CT imaging. RECOMMENDATIONS: 1. We would continue to trend her H and H and transfuse as necessary to maintain an H and H of 7/21. 2. Continue to monitor clinically for signs of active GI bleeding. 3. We will continue antibiotics for now given the possibility of diverticulitis. 4. We would place the patient on a clear liquid diet today with GoLYTELY prep tonight for further evaluation of the intraluminal colon tomorrow with colonoscopy. 5. Further recommendations to follow colonoscopy. We will continue to follow. Please call with any questions. Job ID: [id number]
[2018-11-19] MEDS ORDERED: GoLYTELY 4,000 ml Bottle PO SCH (18:00)
[2018-11-19] MEDS: Atorvastatin Calcium 20 MG TAB PO SCH (21:27)
[2018-11-19] MEDS: Ondansetron PF 4 MG/2 ML Vial IVP PRN (23:32)
[2018-11-20] MEDS: metroNIDAZOLE 500 MG in Premix Bag 1 BAG IVPB SCH ×3 (05:19→17:47)
[2018-11-20] MEDS: Levothyroxine 150 MCG TAB PO SCH (05:20)
[2018-11-20] MEDS: Mometasone/Formoterol 120 PUFF INHALER INH SCH (07:06)
[2018-11-20] MEDS: Insulin Glargine 25 UNITS in Pre-Filled Syringe 1 EACH SC SCH (08:44)
[2018-11-20] MEDS: Polyethylene Glycol 3350 17 GM Packet PO SCH (08:45)
[2018-11-20] MEDS: Losartan 25 MG TAB PO SCH (08:45)
[2018-11-20] MEDS: Cefepime 2 GM in Sodium Chloride 0.9% 100 ML IVPB SCH (08:52)
[2018-11-20] MEDS ORDERED: Morphine Sulfate 2 MG/ML SYRINGE SLOW IVP PRN (11:45)
[2018-11-20] MEDS ORDERED: PACU-Morphine 4MG/ML VIAL SLOW IVP PRN (11:45)
[2018-11-20] MEDS ORDERED: Ondansetron HCl/PF 4 MG/2 ML Vial IVP PRN (11:45)
[2018-11-20] MEDS ORDERED: Promethazine HCl 25 MG/ML VIAL IM PRN (11:45)
[2018-11-20] MEDS ORDERED: Promethazine HCl 25 MG/ML VIAL SLOW IVP PRN (11:45)
[2018-11-20] MEDS ORDERED: HYDROmorphone 2 MG/ML VIAL SLOW IVP PRN (11:45)
[2018-11-20] MEDS: Sodium Chloride 0.9% 1,000 ML IV SCH (13:02)
[2018-11-20 16:03] VITALS: BP 143/64; TEMP 98
--- NOTE | 2018-11-20 18:16 | OP ---
DATE OF PROCEDURE: 11/20/2018 PROCEDURES PERFORMED: Colonoscopy with biopsy, polypectomy, and control of hemorrhage. INDICATIONS FOR PROCEDURE: Left lower quadrant abdominal pain, hematochezia, and abnormal GI imaging showing thickening of the colon in the transverse and splenic flexures. DESCRIPTION OF PROCEDURE: After the risks and benefits of the procedure were explained to the patient including risks of bleeding, infection, perforation, reactions to anesthesia, aspiration, and/or pain, informed consent was obtained. The patient was then taken to the endoscopy suite, where deep sedation was administered via propofol and anesthesia support. Once adequate sedation was achieved, the patient was maneuvered in the left lateral decubitus position and a digital rectal examination was performed. Upon completion of the rectal examination, the standard colonoscope was introduced into the rectum and advanced to the terminal ileum without difficulty. The quality of the prep was fair with a [id number] amount of retained semi-solid liquid stool, but adequate visualization of the colonic mucosa was achieved for the purpose of evaluation of GI bleeding (fine mucosal lesions less than 5 mm in size could have been missed). The patient tolerated the procedure well with no immediate perioperative complications. Upon conclusion of the procedure, the patient was transferred to PACU in satisfactory condition. FINDINGS: Digital rectal exam: Normal findings were seen on digital rectal examination. Colon findings: Normal-appearing mucosa was seen within the terminal ileum as well as at the appendiceal orifice. However, 2 polyps measuring 4 mm and 12 to 15 mm were seen in the cecum and completely removed with snare cautery polypectomy. The larger polyp did exhibit some increased bleeding post maneuver, so hemoclips x2 were placed with good hemostasis achieved after that maneuver. Normal-appearing mucosa was then seen in the ascending and proximal transverse colon at approximately 50 cm past the anal verge. Three linear ulcerations were seen extending longitudinally along the colon itself with increased mucosal erythema surrounding these ulcerations, but no evidence of active or recent bleeding. Multiple biopsies were taken from these ulcerations as the ulcerations measured approximately 10 cm in length with increased bleeding associated with the biopsies taken. The ulcers themselves measured approximately 3 to 4 mm in width and approximately 10 cm in length. Normal-appearing mucosa was seen surrounding these areas other than the erythema immediately surrounding the ulcerations. Normal-appearing mucosa was seen distal to the ulcerations in the mid descending colon. Normal-appearing mucosa was then seen in the sigmoid colon, although some mild luminal narrowing was noted in this region. Normal-appearing mucosa was then seen in the rectum. IMPRESSION: 1. Two cecal polyps measuring 4 mm and 12 to 15 mm, status post hot snare polypectomy with increased bleeding on the larger polyp, status post hemoclip placement x2 with good hemostasis achieved. 2. Linear ulcerations extending from 40 to 50 cm past the anal verge consistent with healing ischemic colitis. 3. Mild luminal narrowing of the sigmoid colon but no evidence of diverticulitis. RECOMMENDATIONS: 1. Would continue to trend her H and H and transfuse as necessary to maintain an H and H of 7/21. 2. Continue to monitor clinically for signs of active GI bleeding (may have some bleeding after the procedure today). 3. We will continue antibiotics for total duration of therapy of approximately 5 days. 4. Would obtain a CT angiography for evaluation of the vasculature of the superior mesenteric artery, which supplies blood to the transverse colon and splenic flexure. 5. Can advance the patient's diet. 6. Pain control per primary team. 7. Once the patient has a CT angiography performed and if clinically stable, she can be discharged to home from a GI standpoint. We will continue to follow while the patient is still inpatient. Please call with any questions. Job ID: [id number]
--- NOTE | 2018-11-21 04:23 | DIS ---
DATE OF ADMISSION: 11/16/2018 DATE OF DISCHARGE: 11/20/2018 DISCHARGE DIAGNOSES: 1. Ischemic colitis. 2. Hematochezia secondary to #1. 3. Diabetes mellitus type 2, insulin requiring. 4. Hypertension, stable. 5. Hypothyroidism. 6. Chronic pain. CONSULTATIONS: Dr. Foster with GI Service. PERTINENT LABORATORY AND X-RAY FINDINGS: Basic metabolic profile within normal limits. LFTs within normal limits. Lipase 18. CBC showed a hemoglobin ranging between 12.3 to 15.6. Stool culture dated 11/18/2018, showed normal enteric ti. Campylobacter and Shigella toxin negative on 11/18/2018. CT of the abdomen and pelvis dated 11/16/2018, showed left colon colitis, likely inflammatory versus ischemic. Colonoscopy dated 11/20/2018, showed cecal polyps as well as linear ulcerations of the transverse colon and splenic flexure consistent with ischemic colitis. HOSPITAL COURSE: The patient was initially admitted after presenting with abdominal pain with hematochezia, undergoing CT imaging of the abdomen and pelvis showing evidence of colitis in the transverse and descending colon. The patient was initially placed on IV antibiotic therapy to include cefepime and metronidazole, evaluated by the GI Service. The patient received general supportive management and underwent bowel preparation and eventual colonoscopy showing cecal polyps, status post polypectomy in addition to linear ulcerations of the transverse colon and splenic flexure consistent with ischemic colitis. Current recommendations are for low-fiber diet and general supportive management. The patient remained clinically stable throughout the hospital course and tolerated regular oral intake. Vital signs have remained stable and the patient was voiding appropriately. I have examined the patient at the time of discharge and discussed followup instructions. The patient verbalized understanding and in agreement, ready for discharge on 11/20/2018. DISCHARGE MEDICATIONS: 1. Symbicort 160/4.5 one puff inhaled b.i.d. 2. Desvenlafaxine succinate 50 mg p.o. daily. 3. Levemir 50 units subcutaneously daily. 4. Synthroid 150 mcg p.o. daily. 5. Olmesartan 40 mg p.o. daily. 6. Omeprazole 40 mg p.o. daily. 7. Zocor 40 mg p.o. at bedtime. FOLLOWUP: The patient may follow up with her primary care provider, Dr. Alvarado Blank within 7 days of discharge. The patient will follow up with Dr. David Foster within 3-4 weeks of discharge. The patient may follow up with her pain specialist, Dr. Vincent and to call his office for appointment time and date. CONDITION ON DISCHARGE: Stable. ACTIVITY: Ad-grey. DIET: ADA with low fiber. CODE STATUS: Full. DISPOSITION: Home on 11/20/2018. Job ID: [id number]
--- NOTE | 2018-11-22 12:00 | EKG ---
Test Reason : Blood Pressure : / mmHG Vent. Rate : 089 BPM Atrial Rate : 089 BPM P-R Int : 176 ms QRS Dur : 068 ms QT Int : 342 ms P-R-T Axes : 068 022 020 degrees QTc Int : 416 ms Normal sinus rhythm Possible Left atrial enlargement Borderline ECG Confirmed by NESTOR CONTRERAS, TOMASZ ([id number]), deputy editor in chief EVELIA HAIRSTON ([id number]) on 11/22/2018 11:59:42 AM Referred By: Confirmed By:TOMASZ BAEZ MD
== END 2018-11-20 18:25 | disposition home or self-care (01) | DRG 394 ==
LOC: ERS 13:47 → 2NO 18:05
PROVIDERS: ADMIT Family Medicine; ATTEND Family Medicine
PROC: 0DBH8ZX Excision of Cecum, Via Natural or Artificial Opening Endoscopic, Diagnostic (ICD-10-PCS; principal; 2018-11-20)
PROC: 0DBL8ZX Excision of Transverse Colon, Via Natural or Artificial Opening Endoscopic, Diagnostic (ICD-10-PCS; 2018-11-20)
PROC: 0W3P8ZZ Control Bleeding in Gastrointestinal Tract, Via Natural or Artificial Opening Endoscopic (ICD-10-PCS; 2018-11-20)
DX: K55.9 Vascular disorder of intestine, unspecified (principal); K63.3 Ulcer of intestine; K63.5 Polyp of colon; M19.90 Unspecified osteoarthritis, unspecified site; I10 Essential (primary) hypertension; J45.909 Unspecified asthma, uncomplicated; E11.65 Type 2 diabetes mellitus with hyperglycemia; E78.5 Hyperlipidemia, unspecified; E03.9 Hypothyroidism, unspecified; Z96.641 Presence of right artificial hip joint; Z88.0 Allergy status to penicillin; Z79.4 Long term (current) use of insulin; Z79.51 Long term (current) use of inhaled steroids; Z79.899 Other long term (current) drug therapy
CPT/HCPCS: 36415; 36416; 71045; 74177; 80048; 80053; 83690; 83735; 84484; 85025; 85610; 85730; 86850; 86900; 86901; 87045; 87046; 87427; 87449; 88305; 90471; 90670; 93005; 96365; 96366; 96375; G0009; J0692; J1815; J1956; J2270; J2405; J2550; J3490; Q9966; Q9967; S0028

== ENCOUNTER 2019-08-14 05:31 | Inpatient (IN) | payer MEDICARE, OTHER ==
[2019-08-14] MEDS ORDERED: Morphine 4 MG/ML VIAL ONE (05:52)
[2019-08-14] MEDS ORDERED: Ondansetron PF 4 MG/2 ML Vial ONE (05:52)
[2019-08-14 06:22] LABS: Hemoglobin 15.6 g/dL (12.0-16.0); Mean Corpuscular Hemoglobin 31.8 pg (27.0-31.0); Mean Corpuscular Volume 93.4 fL (78.0-98.0); Mean Platelet Volume 7.7 fL (7.4-10.4); Platelet Count 194 thou/uL (130-400); RBC Distribution Width 13.9 % (11.5-14.5); Red Blood Cell (RBC) Count 4.92 mill/uL (4.20-5.40); White Blood Cell (WBC) Count 11.9 thou/uL (4.8-10.8)
[2019-08-14 06:37] LABS: Band 35 % (5-11); Lymphocytes 3 % (21-51); MDiff Complete? YES; Monocytes 7 % (0-10); Neutrophil 55 % (42-75); Platelet Morphology Comment Appears Adequate; RBC Morphology Normal
[2019-08-14 06:41] LABS: ALT (SGPT) 34 U/L (8-55); AST (SGOT) 25 U/L (5-34); Albumin 4.5 g/dL (3.4-4.8); Alkaline Phosphatase 112 U/L (40-110); Anion Gap 22 mmol/L (10-20); BUN (Urea Nitrogen) 20 mg/dL (9.8-20.1); Bilirubin, Total 0.6 mg/dL (0.2-1.2); CK (CPK) 181 U/L (29-168); Calc. Creatinine Clearance 0 mL/min (70-130); Calcium 9.3 mg/dL (7.8-10.44); Carbon Dioxide 17 mmol/L (23-31); Chloride 100 mmol/L (98-107); Estimated GFR-MDRD 11; Globulin 3.1 g/dL (2.4-3.5); Glucose 194 mg/dL (80-115); Protein, Total 7.6 g/dL (6.0-8.3); Sodium 136 mmol/L (136-145)
[2019-08-14 06:46] LABS: Potassium 2.7 mmol/L (3.5-5.1)
[2019-08-14] MEDS ORDERED: Potassium Chloride 20 MEQ TAB ONE (06:56)
[2019-08-14] MEDS ORDERED: Sodium Chloride 0.9% 1,000 ML IV SCH (07:00)
[2019-08-14] MEDS ORDERED: Fentanyl 100 MCG/2 ML VIAL ONE (07:08)
[2019-08-14] MEDS ORDERED: Potassium Chloride 20 MEQ in Premix Bag 1 BAG IVPB SCH (07:15)
--- NOTE | 2019-08-14 08:02 | RAD ---
TWO VIEWS RIGHT SHOULDER: COMPARISON: None. HISTORY: Right shoulder pain after trauma. FINDINGS: Two views of the right shoulder show a fracture of the right humeral neck which is moderately displac ed. No dislocation of the humeral head is seen. The visualized right thorax is unremarkable. IMPRESSION: Right proximal humerus fracture. POS: EAA
[2019-08-14] MEDS ORDERED: hydrALAZINE 20 MG/ML VIAL SLOW IVP PRN (11:05)
[2019-08-14] MEDS ORDERED: Dextrose 50% Abboject 50 ML SYRINGE SLOW IVP PRN (11:05)
[2019-08-14] MEDS ORDERED: Acetaminophen 325 MG TAB PO PRN (11:05)
[2019-08-14] MEDS ORDERED: Dextrose 5% in Water 1,000 ML IV PRN (11:05)
[2019-08-14] MEDS ORDERED: HumaLOG 300 UNITS/3 ML VIAL SC PRN ×2 (11:05)
[2019-08-14] MEDS: Morphine 2 MG/ML SYRINGE SLOW IVP PRN (12:16)
[2019-08-14] MEDS: Sodium Chloride 0.9% 1,000 ML IV SCH ×2 (12:16→22:22)
[2019-08-14 13:28] VITALS: BMI 27.3
--- NOTE | 2019-08-14 13:44 | HP ---
PRIMARY CARE PHYSICIAN: Alvarado Blank MD CHIEF COMPLAINT: "I've been having severe diarrhea and got so weak that I fell." HISTORY OF PRESENT ILLNESS: Ms. Hendrix is a very pleasant 68-year-old female who has a history of diabetes mellitus and hypertension as well as asthma. She was in her usual state of health until about 3 weeks ago. She says she started having severe diarrhea, and she also noted a little bit of blood. She says that the diarrhea over time has become more frequent to the point where she is having an episode almost every hour. She describes the diarrhea as watery and mostly mcelroy, but there has been a little blood in it. She also says that she has been nauseated and basically can not eat. She says she has not really had much to eat in the last 3 days. She tried taking an Imodium in the last 2 days to slow down the diarrhea, but it has not. She even sent a stool sample to her innersole maker, Dr. Muniz, who sent it off for Clostridium difficile as well as some possible other etiologies, and she was told it was negative. She says that about 1 a.m. this morning, she felt dizzy and had gotten up to do something and then fell backwards, and her arm was severely painful. She came to the ER for evaluation and was found to be in acute kidney injury, likely from the diarrhea and dehydration and also has fractured her right humerus. The patient is being admitted for further evaluation. Other symptoms are that she has had a little bit of a cough off and on with some mucus, but no fevers, no chills. She denies any sick contacts. She also denies any abdominal pain during this time, but has had significant nausea. REVIEW OF SYSTEMS: All systems were reviewed and are negative except for that mentioned in the History of Present Illness. PAST MEDICAL HISTORY: Significant for diabetes mellitus, asthma, hypertension, hypercholesterolemia, and hypothyroidism. PAST SURGICAL HISTORY: She has had a hysterectomy as well as bilateral hip replacements. ALLERGIES: TO PENICILLIN WHICH CAUSES HIVES. SULFA WHICH CAUSES A RASH. FAMILY HISTORY: Significant for coronary artery disease in her father as well as he had a hemorrhagic stroke. Mother has a history of lung cancer. SOCIAL HISTORY: She is . She does not use any tobacco use. She occasionally uses marijuanas for back pain. She has occasional alcohol use. She says she drinks a [place] wine every other day. MEDICATIONS: Include: 1. Symbicort 160/4.5 inhaled twice a day. 2. Zyrtec 10 mg daily. 3. Insulin 10 units t.i.d. 4. Levemir 85 units subcu at bedtime. 5. Levothyroxine 112 mcg p.o. daily. 6. Olmesartan 40 mg daily. 7. [place]-3 fatty acids daily. 8. Omeprazole 40 mg daily. 9. Simvastatin 40 mg at bedtime. 10. CoQ10 75 mg daily. 11. Ventolin inhaler. PHYSICAL EXAMINATION: GENERAL: She is alert and oriented. She appears to be in no acute distress. She is well developed and well nourished. VITAL SIGNS: Blood pressure was 111/52, heart rate 84, respiratory rate of 18, temperature is 98.8, and O2 saturation was 98% on room air. HEENT: Pupils are equal, round, and reactive to light. Extraocular muscles are intact. Sclerae anicteric. NECK: No adenopathy. No bruits. LUNGS: Clear to auscultation. There is no wheezing. No rales. No rhonchi. CARDIOVASCULAR: She has a normal S1, S2. There is no S3 or S4. No murmurs, clicks, or rubs. ABDOMEN: Obese, soft, nontender, and nondistended. Positive for bowel sounds. No rebound or guarding. EXTREMITIES: There is no clubbing or cyanosis. No edema. However, , the right shoulder is swollen. There is some bruising around the shoulder, but she is hemodynamically intact. NEUROLOGIC: She is vascularly intact. Grossly nonfocal. LABORATORY RESULTS: White blood cell count is 11.9, hemoglobin 15.6, hematocrit is 45.9, and platelet count was 194. Sodium 136, potassium 2.7, chloride is 100, CO2 of 17, BUN of 20, creatinine 3.98, glucose is 194, alkaline phosphatase is 112, and creatine kinase is 181. She had a troponin of 0.28. ASSESSMENT: This is a pleasant 68-year-old female who presents with chronic diarrhea to the point where she has gotten severely dehydrated and suffered a fall. She also has developed an acute kidney injury as well as hypokalemia and has suffered a proximal humerus fracture. 1. For the chronic diarrhea, we will get stool studies. However, it is unlikely to be infectious given the time frame, and we will consult her innersole maker to helper/driver in the evaluation. 2. Acute kidney injury. I suspect this is prerenal due to the diarrhea and decreased oral intake. We will start her on hydration. We will also get a renal ultrasound just as a precaution. 3. Hypokalemia. I suspect this is due to the losses through diarrhea, and this will be replaced. 4. Diabetes mellitus. Since her oral intake has been low, we will restart her insulin at half of her usual dose as well as place her on a sliding scale and titrate back up to her home dose as tolerated. 5. She will be placed on deep venous thrombosis and gastrointestinal prophylaxis at renal dosing. 6. Hypothyroidism. We will restart her usual medications for thyroid. Job ID: [id number]
[2019-08-14] MEDS: Heparin 5,000 UNITS/ML VIAL SC SCH (15:54)
[2019-08-14] MEDS: HYDROcodone/Acetaminophen 5/325 mg Tablet PO PRN ×2 (15:56→21:01)
--- NOTE | 2019-08-14 16:22 | ULT ---
RENAL ULTRASOUND: Comparison: None History: Acute kidney injury Technique: Multiplanar grayscale and color doppler images were obtained in a renal ultrasound. FINDINGS: The kidneys are normal in echogenicity without hydronephrosis or calculi and measure 10.8 and 11.0 cm in length on the right and left, respectively. Limited visualization of the urinary bladder is unrem arkable. IMPRESSION: Unremarkable renal ultrasound. POS: EAA
[2019-08-14] MEDS: Mometasone 200 MCG/Formoterol 5 MCG 120 PUFF INHALER INH SCH (19:22)
[2019-08-14] MEDS ORDERED: Famotidine 20 MG TAB PO SCH (21:00)
[2019-08-14] MEDS: Insulin Glargine 40 UNITS in Pre-Filled Syringe 1 EACH SC SCH (21:02)
--- NOTE | 2019-08-14 21:03 | CON ---
DATE OF CONSULTATION: 08/14/2019 REQUESTING PHYSICIAN: Miguel Campbell MD REASON FOR CONSULTATION: Chronic diarrhea. HISTORY OF PRESENT ILLNESS: Lianna Hendrix is a 68-year-old woman seen previously by my GI colleague, Dr. David Foster. She has a history significant for diabetes and hypertension as well as hypothyroidism and asthma. She notably was hospitalized here in November of 2018, with abdominal pain and hematochezia. She had a colonoscopy in November 2018, which showed two cecal tubular adenomas, which were both removed, as well as multiple linear ulcerations at the splenic flexure and biopsies confirmed ischemic type injury. This was concordant with CT findings at that time showing inflammatory changes in the transverse colon and descending colon. There were no stenoses seen at the celiac trunk or the SMA and so this was thought of possibly represent microvascular disease. At any rate, the patient's hematochezia all improved at that time, so did her abdominal pain. She went back to her baseline tendency to chronic constipation. But over the past three weeks, she has had another change in bowel habits toward diarrhea. This diarrhea has been severe. She is reporting 15 to 20 bowel movements per day. These are liquidy, often with mucus and sometimes scant occasional blood in the stool. There is no associated abdominal pain with this, but she has developed some chronic nausea and has had several episodes of emesis throughout this time. There has been no weight loss. Unfortunately, she was admitted to the hospital earlier today because she had been getting progressively weak and she fell on her arm. Shoulder x-ray shows a displaced right proximal humerus fracture. Laboratory studies are showing acute kidney injury with creatinine up to 3.98 and hypokalemia with potassium 2.7. Notably in recent weeks a daily accessed stool PCR panel was negative for pathogens and on admission here, C. difficile antigen and toxin are negative as well as negative fecal lactoferrin. REVIEW OF SYSTEMS: Full review of systems including constitutional, head, eyes, ears, nose, throat, GI, , cardiovascular, respiratory, musculoskeletal, and neurologic systems is negative except as noted in the HPI. PAST MEDICAL HISTORY: Diabetes, hypertension, hyperlipidemia, asthma, hypothyroidism, hysterectomy, bilateral hip replacement, and ischemic colitis on November 2018. ALLERGIES: PENICILLIN AND SULFA. OUTPATIENT MEDICATIONS: 1. Symbicort twice daily. 2. Zyrtec. 3. Insulin 10 units t.i.d. 4. Levemir 85 units subcutaneously at bedtime. 5. Levothyroxine 112 mcg daily. 6. Olmesartan 40 mg daily. 7. [place]-3 fatty acids. 8. Omeprazole 40 mg daily. 9. Simvastatin 40 mg at bedtime. 10. Coenzyme Q10 of 75 mg daily. 11. Ventolin inhaler. FAMILY HISTORY: Her mother had lung cancer. Father had coronary artery disease. SOCIAL HISTORY: No tobacco use. Marijuana use is occasional. She will have a glass of wine maybe every other day. PHYSICAL EXAMINATION: VITAL SIGNS: Temperature 98.8, pulse 84, blood pressure 111/52, and 98% oxygen saturation on room air. GENERAL: A 68-year-old woman sitting up in bed comfortably, in no distress. SKIN: No jaundice. No rashes were palpable. EYES: No scleral icterus. Extraocular movements intact. ENT: Mucous membranes moist. No oral lesions. LYMPH: No submandibular or supraclavicular lymphadenopathy. THYROID: Nontender to palpation. HEART: Regular rate and rhythm. LUNGS: Clear to auscultation bilaterally. ABDOMEN: Obese and nondistended. Bowel sounds present. Soft. Minimal tenderness to palpation throughout, but no guarding or rebound tenderness. EXTREMITIES: No peripheral edema. There is a swelling and erythema of the right shoulder. VESSELS: Radial pulses 2+ bilaterally. NEURO: Cranial nerves 2 through 12 intact bilaterally. No focal deficits. LABORATORY STUDIES: WBC 11.9, hemoglobin 15.6, and platelets 194. Sodium 136, potassium 2.7, BUN 20, creatinine 3.98, glucose 174. CK is 181 and troponin 0.028. Total bilirubin 0.6, alkaline phosphatase 112, AST 25, ALT 34, and albumin 4.5. C. difficile antigen and toxin are negative. Fecal lactoferrin is not elevated. Other recent stool studies from 08/08/2019, showed negative stool PCR for enteric pathogens including Campylobacter, E. coli, Salmonella, Shigella, vibrio, Yersinia, Cryptosporidium, Entamoeba, and Giardia as well as norovirus. IMAGING STUDIES: Shoulder x-ray shows a displaced right proximal humerus fracture. Renal ultrasound is pending. ASSESSMENT AND PLAN: 1. Chronic diarrhea. 2. Severe dehydration, with acute kidney injury. 3. Recent history of ischemic colitis in November 2018. I note the patient's negative stool studies within the past week as well as the absence of fecal lactoferrin, given she presented with ischemic colitis last November 2018, I have some concern for the possible development of chronic colonic ischemia, which can present with a more chronic diarrhea and can eventually result in colonic strictures. Also consider other etiologies such as onset of celiac disease or inflammatory bowel disease. I would recommend we consider repeating EGD and colonoscopy with plan for duodenal and colon biopsies at some point in the near future. However, we will not plan on any bowel preparation this evening. She is going to be evaluated by Orthopedics, also needs aggressive IV fluid resuscitation and other supportive care for now. If renal function has significantly improved and she is feeling up to it, we might consider bowel preparation tomorrow or the next day. We would advise having her on a clear liquid diet tomorrow. In the meantime, I think Imodium 2 mg as needed could be safely used for symptomatic control of diarrhea. Thank you for the consultation. We will follow along. Please call anytime with questions or concerns. Job ID: [id number]
[2019-08-14] MEDS: Atorvastatin Calcium 20 MG TAB PO SCH (21:04)
--- NOTE | 2019-08-14 21:38 | CON ---
DATE OF CONSULTATION: 08/14/2019 HISTORY OF PRESENT ILLNESS: Ms. Hendrix is a 68-year-old, right-handed female, who has a history of diabetes mellitus and hypertension. She started having fairly severe diarrhea over the last several days. Earlier today, she was getting up to go to the restroom, felt faint and fell, fell onto her right shoulder, had immediate pain and deformity in the right shoulder. The patient was noted to be hypokalemic and dehydrated. X-rays of the right shoulder shows a medially and superiorly displaced humeral neck fracture of the right proximal humerus. The patient denies any neurologic complaints in the right upper extremity. PAST MEDICAL HISTORY: Medical illnesses; diabetes mellitus, asthma, hypertension, hypothyroidism, hypercholesterolemia. ALLERGIES: PENICILLIN AND SULFA. PAST SURGICAL HISTORY: Hysterectomy and bilateral hip replacements. CURRENT MEDICATIONS: 1. Symbicort. 2. Zyrtec. 3. Insulin Levemir. 4. Levothyroxine. 5. Olmesartan. 6. [place]-3 fatty acids. 7. Omeprazole. 8. Simvastatin. 9. CoQ10. 10. Ventolin inhaler. PHYSICAL EXAMINATION: The patient has obvious deformity over the right shoulder. She has tenderness over the right proximal humerus. Skin is in good condition. She does have swelling and some bruising. The right upper extremity is neurovascularly intact. LABORATORY DATA: White count 11.9, hemoglobin 15.6, platelet count 194,000. Potassium is 2.7, BUN is 20, creatinine is 3.98, glucose 194, alkaline phosphatase 112. Creatine kinase 181, troponin of 0.28. X-rays of the right shoulder shows a humeral neck fracture with displacement of the shaft medially and superiorly. PLAN: The patient will require open reduction and internal fixation of the right proximal humerus. Plan on using a plate and screws. The patient will need to be medically cleared for anesthesia. They have already started hydrating the patient and replenishing her potassium. We will tentatively put the patient on for the surgical intervention for tomorrow, but this will be pending clearance from the hospitalist as far as if she is stable for general anesthetic. Job ID: [id number]
[2019-08-15] MEDS: Heparin 5,000 UNITS/ML VIAL SC SCH ×3 (01:32→20:41)
[2019-08-15] MEDS: HYDROcodone/Acetaminophen 5/325 mg Tablet PO PRN ×3 (01:38→09:00)
[2019-08-15 05:09] LABS: #Eosinphils 0.3 thou/uL (0.0-0.7); #Lymphocytes 0.9 thou/uL (1.20-3.40); #Monocytes 0.8 thou/uL (0.11-0.59); #Neutrophils 5.7 thou/uL (1.40-6.50); %Basophils 0.2 % (0.0-1.0); %Eosinophils 3.7 % (0.0-10.0); %Lymphocytes 11.6 % (21.0-51.0); %Monocytes 10.6 % (0.0-10.0); %Neutrophils 73.9 % (42.0-75.0); Hemoglobin 12.7 g/dL (12.0-16.0); Mean Corpuscular HGB CONC 31.6 g/dL (32.0-36.0); Mean Corpuscular Hemoglobin 30.5 pg (27.0-31.0); Mean Corpuscular Volume 96.5 fL (78.0-98.0); Mean Platelet Volume 8.1 fL (7.4-10.4); Platelet Count 209 thou/uL (130-400); RBC Distribution Width 14.1 % (11.5-14.5); Red Blood Cell (RBC) Count 4.16 mill/uL (4.20-5.40); White Blood Cell (WBC) Count 7.7 thou/uL (4.8-10.8)
[2019-08-15 05:29] LABS: Anion Gap 13 mmol/L (10-20); BUN (Urea Nitrogen) 19 mg/dL (9.8-20.1); Calc. Creatinine Clearance 38 mL/min (70-130); Calcium 7.9 mg/dL (7.8-10.44); Carbon Dioxide 18 mmol/L (23-31); Chloride 107 mmol/L (98-107); Estimated GFR-MDRD 27; Glucose 124 mg/dL (80-115); Potassium 3.5 mmol/L (3.5-5.1); Sodium 134 mmol/L (136-145)
[2019-08-15] MEDS: Mometasone 200 MCG/Formoterol 5 MCG 120 PUFF INHALER INH SCH ×2 (06:20→19:22)
[2019-08-15] MEDS: Sodium Chloride 0.9% 1,000 ML IV SCH ×2 (08:54→18:07)
[2019-08-15] MEDS: Fish Oil 1,000 MG CAP PO SCH (09:01)
[2019-08-15] MEDS: Levothyroxine Sodium 112 MCG TAB PO SCH (09:01)
[2019-08-15] MEDS: Loratadine 10 MG TAB PO SCH (09:01)
[2019-08-15] MEDS ORDERED: EPHEDRINE 25 MG/5 ML SYRINGE ONE (10:49)
[2019-08-15] MEDS ORDERED: Calcium Chloride 1 GM/10 ML Abboject SYRINGE ONE (10:49)
[2019-08-15] MEDS ORDERED: PHENYLEPHRINE-NS 100 MCG/ML 10 ML SYRINGE ONE (10:49)
[2019-08-15] MEDS ORDERED: Glycopyrrolate 0.2 MG/ML 5 ML SYRINGE ONE (10:49)
[2019-08-15] MEDS ORDERED: Ondansetron PF 4 MG/2 ML Vial ONE (10:49)
[2019-08-15] MEDS ORDERED: Lidocaine 1% PF 5 ML VIAL ONE (10:49)
[2019-08-15] MEDS ORDERED: PROPOFOL 200 MG/20 ML VIAL ONE (10:49)
[2019-08-15] MEDS ORDERED: Rocuronium Bromide 10 MG/ML (10ML VIAL) ONE (10:49)
[2019-08-15] MEDS ORDERED: Lidocaine 2% w/Epinephrine 1:200K 20 ML VIAL ONE (11:37)
[2019-08-15] MEDS ORDERED: Ropivacaine 0.5% HCl/PF (150 MG/30 ML VIAL) ONE (11:37)
--- NOTE | 2019-08-15 11:54 | PDOC.HOSPP ---
- Subjective Encounter Date: 08/15/19 Encounter Time: 11:54 Subjective: pt up in bed no complains - Objective Vital Signs & Weight: Vital Signs (12 hours) Temp Pulse Resp BP Pulse Ox 08/15/19 11:21 98.1 F 74 16 107/53 L 97 08/15/19 08:05 97.8 F 72 16 110/55 L 100 08/15/19 04:00 97.7 F 80 18 115/55 L 98 08/14/19 23:56 98.7 F 80 18 103/62 95 Weight Weight 184 lb 15.485 oz I&O: 08/14/19 08/15/19 08/16/19 06:59 06:59 06:59 Intake Total 2460 Output Total 400 Balance 2059 Result Diagrams: 08/15/19 04:53 08/15/19 04:53 Additional Labs: Accuchecks 08/15/19 08/14/19 08/14/19 05:22 20:12 15:58 POC Glucose 116 H 152 H 95 Hospitalist ROS - Review of Systems Cardiovascular: denies: chest pain, palpitations, orthopnea, paroxysmal noc. dyspnea, edema, light headedness, other Gastrointestinal: denies: nausea, vomiting, abdominal pain, diarrhea, constipation, melena, hematochezia, other Genitourinary: denies: dysuria, frequency, incontinence, hematuria, retention, other - Medication Medications: Active Medications Generic Name Dose Route Start Last Admin Trade Name Freq PRN Reason Stop Dose Admin Hydrocodone Bitart/Acetaminophen 1 tab 08/14/19 11:05 08/15/19 09:00 [place] 5/325 PO 1 tab Q4H PRN Administration Moderate Pain (4-6) Atorvastatin Calcium 20 mg 08/14/19 21:00 08/14/19 21:04 Lipitor PO Not Given HS BAUTISTA Fish Oil 1,000 mg 08/15/19 09:00 08/15/19 09:01 Fish Oil PO Not Given DAILY BAUTISTA Sodium Chloride 1,000 mls @ 100 mls/hr 08/14/19 11:15 08/15/19 08:54 Normal Saline 0.9% IV 1,000 mls .Q10H BAUTISTA Administration Insulin Glargine 40 units/ 0.4 mls @ 0 mls/hr 08/14/19 21:00 08/14/19 21:02 Miscellaneous Medication SC 0.4 mls HS BAUTISTA Administration Insulin Human Lispro 0 units 08/14/19 11:05 08/14/19 12:23 Humalog SC 2 unit .MODERATE SLIDING SC PRN Administration Moderate Correctional Scale Levothyroxine Sodium 112 mcg 08/15/19 09:00 08/15/19 09:01 Synthroid PO 112 mcg DAILY BAUTISTA Administration Loratadine 10 mg 08/15/19 09:00 08/15/19 09:01 Claritin PO Not Given DAILY BAUTISTA Mometasone Furoate/Formoterol Fumar 1 puff 08/14/19 18:30 08/15/19 06:20 Dulera 200 Mcg/5 Mcg Inhaler INH 1 puff BID-RT BAUTISTA Administration Morphine Sulfate 2 mg 08/14/19 11:05 08/14/19 12:16 Morphine SLOW IVP 2 mg Q4H PRN Administration Moderate Pain (4-6) Pantoprazole Sodium 40 mg 08/15/19 09:00 08/15/19 09:02 Protonix PO Not Given DAILY BAUTISTA - Exam Neck: negative: supple, symmetric, no JVD, no thyromegaly, no lymphadenopathy, no carotid bruit, JVD Heart: negative: RRR, no murmur, no gallops, no rubs, normal peripheral pulses, irregular, diminshed peripheral pulses, murmur present, II/IV, III/IV Respiratory: negative: CTAB, no wheezes, no rales, no ronchi, normal chest expansion, no tachypnea, normal percussion, rales, rhonchi, tachypneic, wheezes Gastrointestinal: negative: soft, non-tender, non-distended, normal bowel sounds , no palpable masses, no hepatomegaly, no splenomegaly, no bruit, no guarding, no rigidity, tender to palpation, distended, diminished bowl sounds, voluntary guarding Hosp A/P (1) Diarrhea Code(s): R19.7 - DIARRHEA, UNSPECIFIED Status: Acute (2) Diabetes mellitus, insulin dependent (IDDM), uncontrolled Code(s): E11.65 - TYPE 2 DIABETES MELLITUS WITH HYPERGLYCEMIA; Z79.4 - [facility] (CURRENT) USE OF INSULIN Status: Chronic (3) HTN (hypertension) Code(s): I10 - ESSENTIAL (PRIMARY) HYPERTENSION Status: Chronic Qualifiers: Hypertension type: essential hypertension Qualified Code(s): I10 - Essential (primary) hypertension (4) GINA (acute kidney injury) Code(s): N17.9 - ACUTE KIDNEY FAILURE, UNSPECIFIED Status: Acute (5) Shoulder fracture, right Code(s): S42.91XA - FRACTURE OF RIGHT SHOULDER GIRDLE, PART UNSP, INIT Status : Acute - Plan pt denies any chest pain or sob. She has a mechanical fall. Has been dizzy due to diarrhea. pt's RCRI risk score is 1% may proceed with surgery. will check tsh. will continue iv fluids. Pt on dvt ppx.
[2019-08-15] MEDS ORDERED: Fentanyl 100 MCG/2 ML VIAL ONE ×3 (12:29→15:02)
[2019-08-15] MEDS ORDERED: Midazolam HCl 2 mg/2 ml Vial ONE (12:29)
[2019-08-15] MEDS ORDERED: Clindamycin/D5W 900 mg/50 ml Premix Bag ONE (13:18)
--- NOTE | 2019-08-15 13:18 | PRG ---
DATE OF SERVICE: 08/15/2019 SUBJECTIVE: Ms. Hendrix is a going down for her humeral fracture repair this morning. She is not having any significant abdominal pain at the moment. Diarrhea seems to have slowed down over the past day as well. Renal function improved with IV resuscitation. PHYSICAL EXAMINATION: VITAL SIGNS: Temperature 98.1, pulse 74, blood pressure 107/53, and 97% oxygen saturation on room air. GENERAL: No acute distress. HEART: Regular rate and rhythm. LUNGS: Clear to auscultation bilaterally. ABDOMEN: Bowel sounds present. Soft and nontender. EXTREMITIES: No peripheral edema. LABORATORY STUDIES: WBC 7.7, hemoglobin 12.7, and platelets 209. Sodium 134, potassium 3.5, BUN 19, creatinine 1.87, and glucose 116. TSH 1.66. Stool studies show absence of elevated fecal lactoferrin. C difficile antigen toxin negative. Rapid parasite screen, shiga toxin, and Campylobacter antigen all negative. ASSESSMENT AND PLAN: 1. Chronic diarrhea. 2. Recent history of ischemic colitis in 11/2018. 3. Severe dehydration with acute kidney injury, improved with fluid resuscitation since yesterday. I discussed again with the patient it would be reasonable to repeat EGD and colonoscopy at some point in the near future for further investigation of her chronic diarrhea. However, other more pressing issues are being addressed first. Still suspect she may have developed some chronic colonic ischemia. We will plan to just follow up peripherally over the next couple of days, and once she has recovered from her surgery and feeling up to it, could consider bowel prep for endoscopy later next week. 4. Right humerus fracture. The patient is going to the OR this morning. Please call anytime with questions or concerns. Job ID: [id number]
[2019-08-15] MEDS ORDERED: Ropivacaine 0.2% 550 ML 550 ML NERVE BLCK SCH (13:26)
[2019-08-15] MEDS ORDERED: HYDROcodone/Acetaminophen 5/325 mg Tablet PO PRN ×2 (13:26)
[2019-08-15] MEDS ORDERED: Promethazine HCl 25 MG/ML VIAL IM PRN ×2 (13:26→14:50)
[2019-08-15] MEDS ORDERED: SUGAMMADEX SODIUM 200 MG/2 ML VIAL ONE (14:44)
[2019-08-15] MEDS ORDERED: HYDROcodone/Acetaminophen 10/325 mg Tablet PO PRN (14:45)
[2019-08-15] MEDS ORDERED: Promethazine HCl 25 MG/ML VIAL SLOW IVP PRN (14:50)
[2019-08-15] MEDS ORDERED: Ondansetron HCl/PF 4 MG/2 ML Vial IVP PRN (14:50)
--- NOTE | 2019-08-15 14:50 | OP ---
DATE OF PROCEDURE: 08/15/2019 PREOPERATIVE DIAGNOSIS: Displaced humeral neck fracture of the right shoulder. POSTOPERATIVE DIAGNOSIS: Displaced humeral neck fracture of the right shoulder. PROCEDURE PERFORMED: Open reduction and internal fixation of the humeral neck fracture of the right shoulder. ANESTHESIA: General. DESCRIPTION OF PROCEDURE: The patient was given preoperative IV antibiotics, taken to the operating room, placed in supine position. Satisfactory general anesthesia was performed. The patient was then placed in the beach chair position. The right shoulder and upper extremity were sterilely prepped and draped in the usual fashion. A longitudinal incision was made over the anterior aspect of the shoulder in the deltopectoral interval. Incision was approximately 6 inches in length. The deltopectoral groove was identified. Cephalic vein was retracted laterally with the deltoid muscle and the surgical neck fracture was identified. The shaft was reduced back under the humeral head and initially was temporarily fixed with a K-wire. A Synthes 3-hole proximal humeral plate was then utilized, initially using two 3.5 cortical screws and then 3.5 locking screws, total of 10 screws were utilized. Locking screws were placed in the plate and in the humeral head. Two of the 3.5 cortical screws were used in the proximal shaft along with another 3.5 locking screw. This was all performed under fluoroscopic visualization, which showed good placement of the plate and screws and good alignment of the fracture. The wound was then irrigated and then closed using Vicryl for the deeper tissue as well as the fat and subcutaneous tissue, and then the skin was closed with skin oswald. Sterile dressing was applied. The patient was then awakened, extubated, and transferred to recovery room in stable condition. ESTIMATED BLOOD LOSS: 100 mL. COMPLICATIONS: None. Job ID: [id number]
[2019-08-15] MEDS ORDERED: Labetalol HCl 100 MG/20 ML VIAL ONE (15:05)
--- NOTE | 2019-08-15 15:09 | RAD ---
EXAM: INTRAOPERATIVE FLUOROSCOPY: 08/15/19 HISTORY: ORIF right humerus. EXPOSURE: 60.9 seconds. 1.47 mGy. FINDINGS: Three intraoperative fluoroscopic views demonstrate internal fixation plate with multiple screws emanuel ersing a right humeral neck fracture. Fracture lucency is identified. Near anatomic alignment. IMPRESSION: Intraoperative fluoroscopy. POS: OFF
[2019-08-15] MEDS: Ondansetron PF 4 MG/2 ML Vial IVP PRN (18:08)
[2019-08-15] MEDS: Clindamycin/D5W 900 MG in Premix Bag 1 BAG IVPB SCH (18:10)
[2019-08-15] MEDS: Insulin Glargine 40 UNITS in Pre-Filled Syringe 1 EACH SC SCH (20:41)
[2019-08-15] MEDS: Atorvastatin Calcium 20 MG TAB PO SCH (23:56)
[2019-08-16] MEDS: Ondansetron PF 4 MG/2 ML Vial IVP PRN ×2 (00:41→11:38)
[2019-08-16] MEDS: Morphine 2 MG/ML SYRINGE SLOW IVP PRN ×3 (00:41→10:15)
[2019-08-16] MEDS: Clindamycin/D5W 900 MG in Premix Bag 1 BAG IVPB SCH (00:42)
[2019-08-16] MEDS: HYDROcodone/Acetaminophen 10/325 mg Tablet PO PRN ×3 (02:34→20:17)
[2019-08-16] MEDS: Sodium Chloride 0.9% 1,000 ML IV SCH ×3 (02:35→20:17)
[2019-08-16 04:36] LABS: #Basophils 0.1 thou/uL (0.0-0.2); #Eosinphils 0.1 thou/uL (0.0-0.7); #Lymphocytes 0.6 thou/uL (1.20-3.40); #Monocytes 0.8 thou/uL (0.11-0.59); #Neutrophils 6.9 thou/uL (1.40-6.50); %Basophils 0.8 % (0.0-1.0); %Eosinophils 1.1 % (0.0-10.0); %Lymphocytes 7.3 % (21.0-51.0); %Neutrophils 81.8 % (42.0-75.0); Hemoglobin 11.3 g/dL (12.0-16.0); Mean Corpuscular HGB CONC 34.1 g/dL (32.0-36.0); Mean Corpuscular Volume 93.7 fL (78.0-98.0); Mean Platelet Volume 7.7 fL (7.4-10.4); Platelet Count 188 thou/uL (130-400); RBC Distribution Width 14.1 % (11.5-14.5); Red Blood Cell (RBC) Count 3.53 mill/uL (4.20-5.40); White Blood Cell (WBC) Count 8.4 thou/uL (4.8-10.8)
[2019-08-16 04:54] LABS: Anion Gap 12 mmol/L (10-20); BUN (Urea Nitrogen) 15 mg/dL (9.8-20.1); Calc. Creatinine Clearance 57 mL/min (70-130); Carbon Dioxide 21 mmol/L (23-31); Chloride 105 mmol/L (98-107); Estimated GFR-MDRD 43; Glucose 125 mg/dL (80-115); Sodium 135 mmol/L (136-145)
[2019-08-16 04:58] LABS: Potassium 2.9 mmol/L (3.5-5.1)
[2019-08-16] MEDS ORDERED: Potassium Chloride 20 MEQ TAB PO SCH (05:15)
[2019-08-16] MEDS: Mometasone 200 MCG/Formoterol 5 MCG 120 PUFF INHALER INH SCH ×2 (07:04→19:20)
[2019-08-16] MEDS: Levothyroxine Sodium 112 MCG TAB PO SCH (08:22)
[2019-08-16] MEDS ORDERED: diphenhydrAMINE 25 MG CAP PO PRN (08:22)
[2019-08-16] MEDS: Loratadine 10 MG TAB PO SCH (08:22)
[2019-08-16] MEDS: Fish Oil 1,000 MG CAP PO SCH (08:23)
[2019-08-16] MEDS: Heparin 5,000 UNITS/ML VIAL SC SCH ×3 (08:24→20:33)
[2019-08-16] MEDS: Potassium Chloride 20 MEQ TAB PO SCH ×2 (11:24→13:04)
--- NOTE | 2019-08-16 18:00 | PDOC.HOSPP ---
- Subjective Encounter Date: 08/16/19 - Objective Vital Signs & Weight: Vital Signs (12 hours) Temp Pulse Resp BP Pulse Ox 08/16/19 17:01 99.0 F 92 18 122/55 L 93 L 08/16/19 11:10 98.0 F 95 18 107/54 L 93 L 08/16/19 08:30 93 L 08/16/19 07:34 98.6 F 90 18 103/54 L 93 L Weight Admit Weight 184 lb Weight 184 lb 15.485 oz I&O: 08/15/19 08/16/19 08/17/19 06:59 06:59 06:59 Intake Total 2460 2140 Output Total 400 240 Balance 0 1900 Result Diagrams: 08/16/19 04:22 08/16/19 04:22 Additional Labs: Accuchecks 08/16/19 08/16/19 08/16/19 17:11 12:06 05:13 POC Glucose 105 130 H 117 H 08/15/19 20:14 POC Glucose 157 H Hospitalist ROS - Medication Medications: Active Medications Generic Name Dose Route Start Last Admin Trade Name Freq PRN Reason Stop Dose Admin Hydrocodone Bitart/Acetaminophen 2 tab 08/15/19 14:45 08/16/19 08:20 [place] 10/325 PO 2 tab Q4H PRN Administration Severe Pain (7-10) Atorvastatin Calcium 20 mg 08/14/19 21:00 08/15/19 23:56 Lipitor PO Not Given HS BAUTISTA Diphenhydramine HCl 25 mg 08/16/19 08:22 08/16/19 08:33 Benadryl PO 25 mg Q6H PRN Administration Itching & Insomnia Fish Oil 1,000 mg 08/15/19 09:00 08/16/19 08:23 Fish Oil PO 1,000 mg DAILY BAUTISTA Administration Heparin Sodium (Porcine) 5,000 units 08/15/19 15:00 08/16/19 15:49 Heparin SC 5,000 units TID BAUTISTA Administration Sodium Chloride 1,000 mls @ 100 mls/hr 08/14/19 11:15 08/16/19 13:37 Normal Saline 0.9% IV 1,000 mls .Q10H BAUTISTA Administration Insulin Glargine 40 units/ 0.4 mls @ 0 mls/hr 08/14/19 21:00 08/15/19 20:41 Miscellaneous Medication SC 0.4 mls HS BAUTISTA Administration Insulin Human Lispro 0 units 08/14/19 11:05 08/14/19 12:23 Humalog SC 2 unit .MODERATE SLIDING SC PRN Administration Moderate Correctional Scale Loratadine 10 mg 08/15/19 09:00 08/16/19 08:22 Claritin PO 10 mg DAILY BAUTISTA Administration Mometasone Furoate/Formoterol Fumar 1 puff 08/14/19 18:30 08/16/19 07:04 Dulera 200 Mcg/5 Mcg Inhaler INH 1 puff BID-RT BAUTISTA Administration Morphine Sulfate 2 mg 08/14/19 11:05 08/16/19 10:15 Morphine SLOW IVP 2 mg Q4H PRN Administration Moderate Pain (4-6) Ondansetron HCl 4 mg 08/15/19 13:26 08/16/19 11:38 Zofran IVP 4 mg Q6H PRN Administration Nausea/Vomiting Pantoprazole Sodium 40 mg 08/15/19 09:00 08/16/19 08:22 Protonix PO 40 mg DAILY BAUTISTA Administration Sodium Chloride 10 ml 08/15/19 21:00 08/16/19 08:33 Flush - Normal Saline IVF Not Given Q12HR BAUTISTA Hosp A/P (1) Diarrhea Code(s): R19.7 - DIARRHEA, UNSPECIFIED Status: Acute (2) Diabetes mellitus, insulin dependent (IDDM), uncontrolled Code(s): E11.65 - TYPE 2 DIABETES MELLITUS WITH HYPERGLYCEMIA; Z79.4 - [facility] (CURRENT) USE OF INSULIN Status: Chronic (3) HTN (hypertension) Code(s): I10 - ESSENTIAL (PRIMARY) HYPERTENSION Status: Chronic Qualifiers: Hypertension type: essential hypertension Qualified Code(s): I10 - Essential (primary) hypertension (4) GINA (acute kidney injury) Code(s): N17.9 - ACUTE KIDNEY FAILURE, UNSPECIFIED Status: Acute (5) Shoulder fracture, right Code(s): S42.91XA - FRACTURE OF RIGHT SHOULDER GIRDLE, PART UNSP, INIT Status : Acute - Plan pt denies any chest pain or sob. She has a mechanical fall. Has been dizzy due to diarrhea. pt's RCRI risk score is 1% may proceed with surgery. will check tsh. will continue iv fluids. Pt on dvt ppx.
[2019-08-16] MEDS: Insulin Glargine 40 UNITS in Pre-Filled Syringe 1 EACH SC SCH (20:17)
[2019-08-16] MEDS: Atorvastatin Calcium 20 MG TAB PO SCH (20:35)
[2019-08-17] MEDS: HYDROcodone/Acetaminophen 10/325 mg Tablet PO PRN ×3 (04:59→15:15)
[2019-08-17 05:34] LABS: Anion Gap 9 mmol/L (10-20); BUN (Urea Nitrogen) 8 mg/dL (9.8-20.1); Calc. Creatinine Clearance 79 mL/min (70-130); Calcium 8.1 mg/dL (7.8-10.44); Carbon Dioxide 22 mmol/L (23-31); Chloride 111 mmol/L (98-107); Estimated GFR-MDRD 63; Glucose 76 mg/dL (80-115); Magnesium 1.8 mg/dL (1.6-2.6); Potassium 3.3 mmol/L (3.5-5.1); Sodium 139 mmol/L (136-145)
[2019-08-17] MEDS ORDERED: Levothyroxine Sodium 112 MCG TAB PO SCH (06:00)
[2019-08-17] MEDS: Mometasone 200 MCG/Formoterol 5 MCG 120 PUFF INHALER INH SCH (06:45)
[2019-08-17] MEDS: Loratadine 10 MG TAB PO SCH (09:40)
[2019-08-17] MEDS: Fish Oil 1,000 MG CAP PO SCH (09:40)
[2019-08-17] MEDS: Heparin 5,000 UNITS/ML VIAL SC SCH ×2 (09:40→14:30)
--- NOTE | 2019-08-17 11:30 | PRG ---
DATE OF SERVICE: 08/17/2019 REASON FOR CONSULTATION: Diarrhea resulting in hypovolemia. SUBJECTIVE: The patient was initially brought to the hospital for complaints of diarrhea that had been going on for the last month, culminating in approximately 10 to 12 liquid bowel movements per day, but with her resultant dehydration and hypovolemia, she sustained a fall to the right upper extremity resulting in a humeral fracture that now underwent internal fixation. When she initially presented to the hospital, she had increased diarrhea, but over the course of this hospitalization, she has had resolution of her diarrhea, having no bowel movement within the last 12 to 24 hours per nursing staff. Today, she states that she is doing better with her pain under good control related to her right upper extremity fracture. Currently, she denies any nausea, vomiting, fevers, chills, abdominal pain, diarrhea, or constipation. OBJECTIVE: VITAL SIGNS: Temperature 98.6, pulse 93, blood pressure 95/53, respiratory rate 18, saturating 93% on room air. GENERAL: The patient was lying in bed, in no acute distress. Alert and oriented x4. CARDIOVASCULAR: Regular rate and rhythm. RESPIRATORY: Clear to auscultation bilaterally. ABDOMEN: Normoactive bowel sounds. Soft, nontender, nondistended. EXTREMITIES: No cyanosis, clubbing, or edema in the lower extremities. The right upper extremity was encased in an [id number] sling with further examination limited due to mobility/pain. LABORATORY DATA: Chemistry with a sodium of 139, potassium 3.3, chloride 111, CO2 of 22, BUN 8, creatinine 0.89, glucose 76. IMAGING DATA: No current GI imaging is available for review. ASSESSMENT AND PLAN: The patient is a 68-year-old female with past medical history of diabetes, hypertension, hyperlipidemia, asthma, hypothyroidism, and ischemic colitis (November 2018), initially presenting with increased diarrhea and resultant hypokalemia/acute kidney injury as well as a right humeral fracture. Diarrhea/hypokalemia/hypovolemia: The patient was being evaluated as an outpatient for increasing diarrhea that had been worsening over the last month and culminating in approximately 10 to 12 liquid bowel movements per day. Infectious stool studies obtained as an outpatient were negative for an obvious pathogen with repeat infectious stool studies during this admission also negative. Plans were to have the patient undergo IV hydration and possibly colonoscopy at a later date, but the patient with her hypovolemic state and generalized weakness sustained a fall to her right upper extremity resulting in a humeral fracture. With the patient being placed on narcotic medications and with the internal fixation of her right upper extremity, she has had complete resolution of her diarrhea during this admission with no bowel movements within the last 12 to 24 hours. At this time, the possibility of a recurrent bout of ischemic colitis is somewhat increased, especially with her smoking history as an outpatient and the increased diarrhea. However, the differential could have also included microscopic colitis; infectious etiology (less likely); mesenteric ischemia (less likely); celiac disease (less likely); ingestion of an osmotically active food stuff/liquid; IBS, poor medication-induced. However, with the complete resolution of her diarrhea with the administration of narcotics and her relative inability to undergo a colonoscopy prep at this time, this is probably better suited towards an outpatient evaluation. RECOMMENDATIONS: 1. We would continue to trend her chemistries with repletion of her electrolytes as needed. 2. Continue to monitor clinically for signs of increased diarrhea and if increasing, we would re-consult at that time with plans for possible colonoscopy. 3. We would discharge the patient to rehab once clinically cleared and follow up in the GI Clinic as an outpatient for further evaluation of this diarrhea. 4. We would recommend a higher fiber diet while inpatient as part of a stool bulking technique. We will sign off at this time. Please call with any additional questions. Job ID: [id number]
--- NOTE | 2019-08-17 15:38 | PQF ---
DATE: 08-17-19 ATTN: DR. ROSIO LOCKE Please exercise your independent, professional judgment in responding to the clarification form. Clinical indicators are provided on the bottom of this form for your review Please check appropriate box(s): [ ] Hyponatremia [ ] Insignificant Lab Values [ x ] Other diagnosis ____hypokalemia mild [ ] Unable to determine In addition, please specify: Present on Admission (POA): [ x] Yes [ ] No [ ] Unable to determine For continuity of documentation, please document condition throughout progress notes and discharge summary. Thank You. CLINICAL INDICATORS - SIGNS / SYMPTOMS/ LABS are present in the medical record: SODIUM: 08-14-19: 136 08-15-19: 134 08-16-19: 135 08-17-19: 139 H&P 08-14-19: SEVERE DIARRHEA, FEELING WEAK, NAUSEAD AND BASICALLY CANNOT EAT , DEHYDRATION RISK FACTORS: H&P 08-14-19: SEVERE DIARRHEA, FEELING WEAK, NAUSEAD AND BASICALLY CANNOT EAT , DEHYDRATION TREATMENT: ER NOTES 08-14-19 : NS IVF X2 L SERIES OF LABS 08-14-19 TO 08-17-19 (This form is maintained as a part of the permanent medical record) 2014 [employer]. All Rights Reserved [email or web address] [employer] [facility]
[2019-08-17 17:45] VITALS: BP 118/64; TEMP 98.5
--- NOTE | 2019-08-17 19:30 | PRG ---
DATE OF SERVICE: 08/17/2019 SUBJECTIVE: Ms. Hendrix underwent open reduction and internal fixation of the right proximal humerus two days ago on 08/15/2019. She reports no neurologic complaints in the right upper extremity. States that her pain is decreasing. Last vital signs; temperature 98.4, pulse 95, respiratory rate 18, O2 saturation 94% on room air. Last blood pressure 124/62. The incision over the anterior aspect of the right shoulder is healing well and the right upper extremity is neurovascularly intact. PLAN: The patient is to continue to protect the right shoulder, wear her shoulder immobilizer. Avoid any pushing, pulling, or lifting with the right upper extremity. She will follow up in my office in 2 weeks. Job ID: [id number]
--- NOTE | 2019-08-18 02:50 | DIS ---
DATE OF ADMISSION: 08/14/2019 DATE OF DISCHARGE: 08/17/2019 DISCHARGE DIAGNOSES: As of the followin. Dehydration, resolved. 2. Diarrhea, chronic, resolved. 3. Nausea, vomiting, improved. 4. Acute kidney injury, resolved. 5. Right shoulder fracture. 6. Hypertension. 7. Diabetes. HOSPITAL COURSE: The patient is a very pleasant 68-year-old female, who initially presented to the hospital on 08/13 for generalized weakness. The patient has been having several bouts of diarrhea for a couple weeks prior to this. She has been following up with GI as an outpatient and has multiple studies done. She stated that she got dizzy and fell and injured her right shoulder. The patient at this time had shoulder x-ray, which indicated right shoulder proximal humeral fracture. The patient at this time was seen by Orthopedics and also GI. The patient's diarrhea resolved. The patient did have an open reduction and internal fixation of the humeral neck fracture of the right shoulder. She did well postoperatively. Her diarrhea has ceased. She has been eating small meals. She will be going to rehabilitation. HOME MEDICATIONS: Her home medications will be resumed, which include: 1. NovoLog 10 units t.i.d. 2. Zyrtec 10 mg daily. 3. Levothyroxine 112 mcg daily. 4. Budesonide 160 inhalation twice a day. 5. Levemir 85 units at bedtime. 6. Olmesartan 20 mg daily. This was held while she was here. Her creatinine has improved. She can resume med. 7. Zocor 40 mg daily. 8. Omeprazole 40 mg daily. 9. [place] 1 tab p.o. hours p.r.n. 10. Levemir 85 units at bedtime. PHYSICAL EXAMINATION: VITAL SIGNS: Temperature 98.4, 95, 18, 94% on room air, 124/62. GENERAL: She is awake, alert, and oriented x3. Does not appear in distress. CV: S1, S2 present. No murmurs, rubs, or gallops. ABDOMEN: Soft and nontender. Bowel sounds present x2. She will be discharged to inpatient rehabilitation. She will follow up with GI and also will follow up with Orthopedics. Job ID: [id number]
--- NOTE | 2019-08-20 05:14 | PQF ---
LEAH CONNELL KARISHMA [id number] CLINICAL DOCUMENTATION CLARIFICATION FORM: POST DISCHARGE Addendum to original discharge summary date: ____ Late entry note date: __ DATE:08/20/2019 ATTN: Saranya Haddad Please exercise your independent, professional judgment in responding to the clarification form. Clinical indicators are provided on the bottom of this form for your review Please check appropriate box(s): [ ] Hypovolemic Shock [ ] Shock Unspecified [ ] Other diagnosis [ ] Unable to determine In addition, please specify: Present on Admission (POA): [ ] Yes [ ] No [ ] Unable to determine For continuity of documentation, please document condition throughout progress notes and discharge summary. Thank You. CLINICAL INDICATORS - SIGNS / SYMPTOMS / LABS Laboratory 08/13 Potassium 2.7, BUN 20, Creatinine 3.98, GFR 11 Vital signs 08/13 BP 111/52; 94/44; 105/53; 102/50, Pulse 81, Resp 18, Temp 98.5 Vital signs 08/14 BP 115/55; 110/55; 107/53, Pulse 80, Resp 16, Temp 98.1 H&P p1 08/13 Dr Campbell Having severe diarrhea and got so weak H&P p1 08/13 Dr Campbell Found to be in GINA likely from diarrhea and dehydration PN p1 08/16 Dr Foster Diarrhea resulting in hypovolemia RISK FACTORS H&P p1 08/13 68 year-old Female H&P p1 08/13 DM H&P p1 08/13 HTN H&P p1 08/13 Hypercholesteremia H&P p1 08/13 Hypothyroidism H&P p1 08/13 Dehydration H&P p1 08/13 GINA H&P p3 08/13 Hypokalemia TREATMENTS: MAY 07 IVF Normal saline 1L Bolus MAY 07 IV Potassium Chloride 40meq Vital signs Monitoring ordered 08/13 PN p1 08/16 repletion of electrolytes as needed PN p1 08/16 trend her chemistries (This form is maintained as a part of the permanent medical record) 2014 [employer], [employer]. All Rights Reserved [email or web address] [email or web address]
--- NOTE | 2019-08-22 14:38 | EKG ---
Test Reason : Blood Pressure : / mmHG Vent. Rate : 085 BPM Atrial Rate : 085 BPM P-R Int : 172 ms QRS Dur : 068 ms QT Int : 364 ms P-R-T Axes : 066 008 -05 degrees QTc Int : 433 ms Normal sinus rhythm Abnormal ECG Confirmed by JOYCE KEARNEY ([id number]), editor trade journal EVELIA HAIRSTON ([id number]) on 08/22/2019 2:37:42 PM Referred By: Confirmed By:JOYCE KEARNEY
== END 2019-08-17 18:22 | DRG 493 ==
LOC: ERS 05:31 → ONC 07:15 → SURG A 08-17 11:51 → ONC 08-17 11:54
PROVIDERS: ADMIT Internal Medicine; ATTEND Internal Medicine
PROC: 0PSC04Z Reposition Right Humeral Head with Internal Fixation Device, Open Approach (ICD-10-PCS; principal; 2019-08-15)
DX: S42.211A Unspecified displaced fracture of surgical neck of right humerus, initial encounter for closed fracture (principal); N17.9 Acute kidney failure, unspecified; K55.1 Chronic vascular disorders of intestine; E78.5 Hyperlipidemia, unspecified; J45.909 Unspecified asthma, uncomplicated; M19.90 Unspecified osteoarthritis, unspecified site; E03.9 Hypothyroidism, unspecified; Z96.643 Presence of artificial hip joint, bilateral; F32.9 Major depressive disorder, single episode, unspecified; I10 Essential (primary) hypertension; F12.10 Cannabis abuse, uncomplicated; E86.0 Dehydration; E78.00 Pure hypercholesterolemia, unspecified; E87.6 Hypokalemia; K52.9 Noninfective gastroenteritis and colitis, unspecified; E11.65 Type 2 diabetes mellitus with hyperglycemia; E86.1 Hypovolemia; W18.30XA Fall on same level, unspecified, initial encounter; Z79.4 Long term (current) use of insulin; Z90.710 Acquired absence of both cervix and uterus; Z88.0 Allergy status to penicillin; Z88.2 Allergy status to sulfonamides; Z79.899 Other long term (current) drug therapy; Z79.890 Hormone replacement therapy
CPT/HCPCS: 36415; 36416; 76000; 76770; 80048; 80053; 82550; 83630; 83735; 84443; 84484; 85025; 87324; 87328; 87329; 87427; 87449; 93005; 96361; 96365; 96375; A4306; C1713; J1644; J1815; J2001; J2250; J2270; J2405; J2704; J2795; J3010; J3480; J3490; Q0163

== ENCOUNTER 2019-09-04 04:57 | Emergency (ER) | payer MEDICARE, OTHER ==
[2019-09-04] MEDS ORDERED: Ondansetron PF 4 MG/2 ML Vial ONE ×2 (05:25→05:26)
[2019-09-04 05:52] LABS: #Eosinphils 0.7 thou/uL (0.0-0.7); #Lymphocytes 0.6 thou/uL (1.20-3.40); #Monocytes 0.6 thou/uL (0.11-0.59); #Neutrophils 4.7 thou/uL (1.40-6.50); %Basophils 0.7 % (0.0-1.0); %Eosinophils 10.4 % (0.0-10.0); %Lymphocytes 9.6 % (21.0-51.0); %Monocytes 8.6 % (0.0-10.0); %Neutrophils 70.7 % (42.0-75.0); Hemoglobin 13.5 g/dL (12.0-16.0); Mean Corpuscular HGB CONC 31.7 g/dL (32.0-36.0); Mean Corpuscular Hemoglobin 30.1 pg (27.0-31.0); Mean Platelet Volume 6.6 fL (7.4-10.4); Platelet Count 445 thou/uL (130-400); RBC Distribution Width 13.9 % (11.5-14.5); Red Blood Cell (RBC) Count 4.49 mill/uL (4.20-5.40); White Blood Cell (WBC) Count 6.6 thou/uL (4.8-10.8)
[2019-09-04 06:16] LABS: ALT (SGPT) 15 U/L (8-55); AST (SGOT) 20 U/L (5-34); Albumin 4.2 g/dL (3.4-4.8); Alkaline Phosphatase 144 U/L (40-110); Anion Gap 18 mmol/L (10-20); BUN (Urea Nitrogen) 6 mg/dL (9.8-20.1); Bilirubin, Total 0.6 mg/dL (0.2-1.2); Calc. Creatinine Clearance 0 mL/min (70-130); Calcium 9.6 mg/dL (7.8-10.44); Carbon Dioxide 22 mmol/L (23-31); Chloride 103 mmol/L (98-107); Estimated GFR-MDRD 65; Globulin 3.2 g/dL (2.4-3.5); Glucose 158 mg/dL (80-115); Magnesium 1.6 mg/dL (1.6-2.6); Potassium 3.2 mmol/L (3.5-5.1); Protein, Total 7.4 g/dL (6.0-8.3); Sodium 140 mmol/L (136-145)
[2019-09-04] MEDS ORDERED: Loperamide HCl 2 MG CAP ONE ×2 (06:25→06:26)
--- NOTE | 2019-09-04 07:38 | CT ---
CT ABDOMEN AND PELVIS WITH IV CONTRAST: DATE: 09/04/2019. PROVIDED CLINICAL HISTORY: Nausea, vomiting, and diarrhea. FINDINGS: Comparison is made with a study dated 11/16/2018. The visualized lung bases are free of significant o pacity. The liver, spleen, pancreas, kidneys, and adrenal glands demonstrate no significant abnormality. There is moderate gallbladder distention without surrounding inflammatory change apparent. There is no bowel dilatation, inflammatory fat stranding, free fluid, or free air apparent. The pelv is is partially obscured by beam-hardening artifact from bilateral hip arthroplasties. The appendix appears normal. Scattered atherosclerotic vascular calcifications are seen. The osseous structures demonstrate no co ncerning lytic or blastic lesions. IMPRESSION: No definite evidence for an acute process. POS: MARCO ANTONIO
[2019-09-04] MEDS ORDERED: Iopamidol-370 76% 500 ML 1 ML ONE (11:41)
== END 2019-09-04 08:31 | disposition home or self-care (01) ==
LOC: ERS 04:57
DX: L03.113 Cellulitis of right upper limb (principal); R11.2 Nausea with vomiting, unspecified; R19.7 Diarrhea, unspecified; E78.5 Hyperlipidemia, unspecified; I10 Essential (primary) hypertension; J45.909 Unspecified asthma, uncomplicated; E11.9 Type 2 diabetes mellitus without complications; F41.9 Anxiety disorder, unspecified; F32.9 Major depressive disorder, single episode, unspecified; Z79.4 Long term (current) use of insulin; Z79.899 Other long term (current) drug therapy; M19.90 Unspecified osteoarthritis, unspecified site
CPT/HCPCS: 74177; 80053; 82274; 83630; 83735; 85025; 87045; 87046; 87427; 87449; 96361; 96374; J2405; Q9967

== ENCOUNTER 2019-09-19 13:07 | Inpatient (IN) | payer MEDICARE, OTHER ==
[2019-09-19 13:58] LABS: #Basophils 0.1 thou/uL (0.0-0.2); #Eosinphils 0.3 thou/uL (0.0-0.7); #Lymphocytes 0.9 thou/uL (1.20-3.40); #Monocytes 0.5 thou/uL (0.11-0.59); #Neutrophils 5.7 thou/uL (1.40-6.50); %Basophils 0.8 % (0.0-1.0); %Eosinophils 4.5 % (0.0-10.0); %Neutrophils 75.8 % (42.0-75.0); Hemoglobin 15.1 g/dL (12.0-16.0); Mean Corpuscular HGB CONC 33.1 g/dL (32.0-36.0); Mean Corpuscular Hemoglobin 30.8 pg (27.0-31.0); Mean Corpuscular Volume 93.1 fL (78.0-98.0); Mean Platelet Volume 8.2 fL (7.4-10.4); Platelet Count 247 thou/uL (130-400); RBC Distribution Width 13.9 % (11.5-14.5); Red Blood Cell (RBC) Count 4.92 mill/uL (4.20-5.40); White Blood Cell (WBC) Count 7.5 thou/uL (4.8-10.8)
[2019-09-19 14:21] LABS: ALT (SGPT) 29 U/L (8-55); AST (SGOT) 31 U/L (5-34); Albumin 4.2 g/dL (3.4-4.8); Alkaline Phosphatase 195 U/L (40-110); Anion Gap 18 mmol/L (10-20); BUN (Urea Nitrogen) 14 mg/dL (9.8-20.1); Bilirubin, Total 0.8 mg/dL (0.2-1.2); Calc. Creatinine Clearance 0 mL/min (70-130); Calcium 9.8 mg/dL (7.8-10.44); Carbon Dioxide 21 mmol/L (23-31); Chloride 96 mmol/L (98-107); Estimated GFR-MDRD 38; Globulin 3.1 g/dL (2.4-3.5); Glucose 148 mg/dL (80-115); Lipase 12 U/L (8-78); Protein, Total 7.3 g/dL (6.0-8.3); Sodium 132 mmol/L (136-145)
[2019-09-19 14:30] LABS: Potassium 2.6 mmol/L (3.5-5.1)
[2019-09-19] MEDS ORDERED: Ondansetron PF 4 MG/2 ML Vial ONE (14:45)
[2019-09-19] MEDS ORDERED: Potassium Chloride 20 MEQ TAB ONE (14:45)
[2019-09-19 15:00] LABS: Bilirubin Large (Negative); Blood, Urine Trace (Negative); Glucose, Urine (Dipstick) Negative (Negative); Ketone, Urine 80 mg/dL (Negative); Leukocyte Small (Negative); Nitrite Negative (Negative); Protein, Urine (Dipstick) 100 mg/dL (Neg-Trace); Specific Gravity, Urine 1.025 (1.005-1.030)
[2019-09-19] MEDS ORDERED: NS 0.9% w/ 40 MEQ KCL 1,000 ML IV SCH (15:00)
[2019-09-19 15:04] LABS: Clarity Cloudy (Clear)
[2019-09-19 15:08] LABS: Bacteria/HPF Rare-Few HPF (None Seen); RBC/HPF 0-3 HPF (0-3); Renal Epithelial None Seen HPF (None Seen); Transitional Epithelial 0-3 HPF (None Seen)
[2019-09-19] MEDS ORDERED: HYDROcodone/Acetaminophen 10/325 mg Tablet PO PRN (15:20)
[2019-09-19] MEDS ORDERED: Acetaminophen 325 MG TAB PO PRN (15:23)
[2019-09-19] MEDS ORDERED: HYDROcodone/Acetaminophen 5/325 mg Tablet PO PRN (15:23)
[2019-09-19] MEDS ORDERED: Ondansetron ODT 4 MG TAB PO PRN (15:23)
[2019-09-19] MEDS ORDERED: HumaLOG 300 UNITS/3 ML VIAL SC PRN ×2 (15:25)
[2019-09-19] MEDS ORDERED: Dextrose 5% in Water 1,000 ML IV PRN (15:25)
[2019-09-19] MEDS ORDERED: Dextrose 50% Abboject 50 ML SYRINGE SLOW IVP PRN (15:25)
[2019-09-19] MEDS ORDERED: Benzonatate 100 MG CAP PO PRN (15:28)
[2019-09-19] MEDS ORDERED: Melatonin 3 MG TAB PO PRN (15:28)
[2019-09-19] MEDS ORDERED: Labetalol HCl 100 MG/20 ML VIAL SLOW IVP PRN (15:28)
[2019-09-19] MEDS ORDERED: diphenhydrAMINE 25 MG CAP PO PRN (15:28)
[2019-09-19] MEDS ORDERED: Albuterol Sulfate 2.5 mg/3 ml Neb NEB PRN (15:45)
--- NOTE | 2019-09-19 16:52 | PDOC.HHP ---
Hospitalist HPI - History of Present Illness Nausea, vomiting, and diarrhea History of Present Illness: 68-year-old female with past medical history of recent clinical diagnosis of Clostridium difficile in the outpatient clinic presents with intractable nausea , vomiting, and diarrhea. Patient sees Dr. Foster and was recently clinically diagnosed with Clostridium difficile in the outpatient setting and sent home with a prescription of oral vancomycin. She has attempted to take two doses of this sometime last week, patient does not remember which days this was. Patient states that she was unable to keep down either dose and has not tried for several days since then. Patient had a similar presentation about a month ago with such severe dehydration that she had a syncopal event in which she fell and broke her right shoulder. Patient unable to keep down any foods, though she is able to keep down a little bit of water at times. Patient presenting with intractable nausea vomiting and diarrhea. Symptoms were not alleviated by her Zofran home medication or any other measures. Patient sought emergency medical attention for further recommendations. Patient denies belly pain, fevers, or any other sick type symptoms. Patient was found to be dehydrated with acute kidney injury present on admission and hypokalemia. Patient admitted to the medical floor with gastroenterology consultation requested. Hospitalist ROS - Review of Systems All other systems reviewed; all pertinent +/- noted in HPI/Subj Hospitalist History - Past Medical History Source: patient, old records Cardiac: reports: HTN, Hyperlipidemia Pulmonary: reports: asthma Psych: reports: Depression Endocrine: reports: Diabetes - Past Surgical History Past Surgical History: reports: Hysterectomy, Other (Shoulder surgery) - Family History Family History: reports: diabetes mellitus - Social History Smoking Status: Unknown if ever smoked Alcohol: reports: None Drugs: reports: none Living Situation: With Family Domestic Violence: Negative Activity level: independent ambulation - Exam General Appearance: NAD, awake alert Eye: PERRL ENT: normocephalic atraumatic, moist mucosa Neck: supple, symmetric, no JVD Heart: no murmur, no gallops, no rubs Respiratory: CTAB, no wheezes, no rales, no ronchi, normal chest expansion Gastrointestinal: soft, non-tender, non-distended, no guarding, no rigidity Extremities: no edema Skin: no lesions, no rashes Neurological: cranial nerve grossly intact, no focal deficits Musculoskeletal: generalized weakness Psychiatric: normal affect, normal behavior, A&O x 3 Hospitalist Results - Labs Result Diagrams: 09/19/19 13:51 09/19/19 13:51 Lab results: WBC 7.5 thou/uL (4.8-10.8) 09/19/19 13:51 Hgb 15.1 g/dL (12.0-16.0) 09/19/19 13:51 Hct 45.8 % (36.0-47.0) 09/19/19 13:51 MCV 93.1 fL (78.0-98.0) 09/19/19 13:51 Plt Count 247 thou/uL (130-400) 09/19/19 13:51 Neutrophils % 75.8 % (42.0-75.0) H 09/19/19 13:51 Sodium 132 mmol/L (136-145) L 09/19/19 13:51 Potassium 2.6 mmol/L (3.5-5.1) L* 09/19/19 13:51 Chloride 96 mmol/L (98-107) L 09/19/19 13:51 Carbon Dioxide 21 mmol/L (23-31) L 09/19/19 13:51 BUN 14 mg/dL (9.8-20.1) 09/19/19 13:51 Creatinine 1.37 mg/dL (0.6-1.1) H 09/19/19 13:51 Glucose 148 mg/dL (80-115) H 09/19/19 13:51 Lactic Acid 1.3 mmol/L (0.5-2.2) 09/19/19 13:51 Calcium 9.8 mg/dL (7.8-10.44) 09/19/19 13:51 Total Bilirubin 0.8 mg/dL (0.2-1.2) 09/19/19 13:51 AST 31 U/L (5-34) 09/19/19 13:51 ALT 29 U/L (8-55) 09/19/19 13:51 Alkaline Phosphatase 195 U/L (40-110) H 09/19/19 13:51 Serum Total Protein 7.3 g/dL (6.0-8.3) 09/19/19 13:51 Albumin 4.2 g/dL (3.4-4.8) 09/19/19 13:51 Lipase 12 U/L (8-78) 09/19/19 13:51 Urine Ketones 80 mg/dL (Negative) A 09/19/19 14:42 Urine Blood Trace (Negative) A 09/19/19 14:42 Urine Nitrite Negative (Negative) 09/19/19 14:42 Ur Leukocyte Esterase Small (Negative) H 09/19/19 14:42 Urine RBC 0-3 HPF (0-3) 09/19/19 14:42 Urine WBC 7-10 HPF (0-3) A 09/19/19 14:42 Ur Squamous Epith Cells 4-6 HPF (0-3) A 09/19/19 14:42 Urine Bacteria Rare-Few HPF (None Seen) 09/19/19 14:42 Hospitalist H&P A/P - Problem (1) GINA (acute kidney injury) Code(s): N17.9 - ACUTE KIDNEY FAILURE, UNSPECIFIED Status: Acute (2) Colitis Code(s): K52.9 - NONINFECTIVE GASTROENTERITIS AND COLITIS, UNSPECIFIED Status : Acute (3) Diarrhea Code(s): R19.7 - DIARRHEA, UNSPECIFIED Status: Acute (4) HLD (hyperlipidemia) Code(s): E78.5 - HYPERLIPIDEMIA, UNSPECIFIED Status: Acute (5) Shoulder fracture, right Code(s): S42.91XA - FRACTURE OF RIGHT SHOULDER GIRDLE, PART UNSP, INIT Status : Acute (6) Diabetes mellitus, insulin dependent (IDDM), uncontrolled Code(s): E11.65 - TYPE 2 DIABETES MELLITUS WITH HYPERGLYCEMIA; Z79.4 - PENITENTIARY (CURRENT) USE OF INSULIN Status: Chronic (7) HTN (hypertension) Code(s): I10 - ESSENTIAL (PRIMARY) HYPERTENSION Status: Chronic Qualifiers: Hypertension type: essential hypertension Qualified Code(s): I10 - Essential (primary) hypertension (8) Hypothyroidism Code(s): E03.9 - HYPOTHYROIDISM, UNSPECIFIED Status: Chronic - Plan Plan: Plan: admit to medical unit gastroenterology consultation, recommendations appreciated NG tube for intractable nausea and vomiting oral vancomycin repeat Clostridium difficile stool IV fluid resuscitation for renal insufficiency replace potassium continue other home medications is able long and short acting insulin for glucose control blood pressure control G.I. prophylaxis DVT prophylaxis
[2019-09-19 18:26] VITALS: BMI 32.0
[2019-09-19] MEDS: NS 0.9% w/ 40 MEQ KCL 1,000 ML IV SCH (18:40)
[2019-09-19] MEDS: HumaLOG 300 UNITS/3 ML VIAL SC SCH (18:41)
[2019-09-19] MEDS: Mometasone 200 MCG/Formoterol 5 MCG 120 PUFF INHALER INH SCH (18:51)
[2019-09-19] MEDS: Ondansetron PF 4 MG/2 ML Vial IVP PRN (19:16)
[2019-09-19] MEDS: Vancomycin HCl 25 MG/ML Oral PO SCH (19:17)
--- NOTE | 2019-09-19 20:18 | CON ---
DATE OF CONSULTATION: 09/19/2019 CHIEF COMPLAINT: Diarrhea. HISTORY OF PRESENT ILLNESS: Ms. Hendrix is a 68-year-old woman who was admitted to the hospital back in November with ischemic colitis. She has had diarrhea on and off since then along with what she reports as a 40-pound weight loss. She was readmitted back in mid-august a month ago with recurrence of diarrhea associated with weakness and associated fall, for which she had a displaced fracture of her proximal humerus. She was treated with antibiotics for shoulder injury. She was evaluated by GI, and stool studies were obtained, which were negative for C difficile and culture and ova and parasite. She still had persistent diarrhea after discharge, and she came back to the emergency room on 09/04/2019, and stool studies this time were positive for lactoferrin, but again negative for culture. CT scan of the abdomen and pelvis was performed, which did not show any acute abnormalities. That CT scan was performed on 09/04/2019. She was discharged home, but since then she has continued to have diarrhea. She called the office due to ongoing diarrhea. She has been taking Imodium 2 tablets every 4 hours. She was having 20 stools per day, but on the scheduled Imodium every 4 hours, she is having 10 to 12 stools per day. She has a constant left lower quadrant abdominal aching, which does not really fluctuate. She has had no blood in the stool. No fever. She has had ongoing nausea with this. Dr. Foster saw her and increased her Zofran to 8 mg three times a day, which controls her nausea temporarily. She also had stool studies repeated to the [facility], this was actually back in August, that were negative. She had blood work done through the office on 09/15/2019, that showed her creatinine to have increased to 1.67 from 0.8 on September 03. She was advised to go into the emergency room due to the ongoing diarrhea and acute renal failure; however, she did not return until a few days later, which is today. Earlier in the week, she was empirically started on vancomycin orally for clinical suspicion of C diff colitis; however, she only took a couple of doses and threw those up and did not take additional vancomycin. She was also supposed to be on ciprofloxacin for shoulder, but has not been taking that either. She did receive some antibiotics; however, last time she was in the hospital for shoulder. PAST MEDICAL HISTORY: Hypertension, hyperlipidemia, ischemic colitis, diabetes mellitus, asthma, hypothyroidism, gastroesophageal reflux. PAST SURGICAL HISTORY: A month ago, she had open reduction and fixation of fracture of the left humerus. She has had hysterectomy and hip replacement and colonoscopy back in November 2018. FAMILY HISTORY: Negative for GI malignancy. SOCIAL HISTORY: One glass of wine every couple days. Occasional marijuana. No smoking of tobacco. ALLERGIES: PENICILLIN AND SULFA. OUTPATIENT MEDICATIONS: Include, 1. Imodium and Zofran as stated in history of present illness. 2. Ventolin inhaler. 3. CoQ10. 4. Zocor. 5. Omeprazole. 6. [place]-3 fatty acids. 7. Olmesartan. 8. Levothyroxine. 9. Insulin. 10. Hydrocodone. 11. Desvenlafaxine. 12. Symbicort. 13. Zyrtec. REVIEW OF SYSTEMS: Negative x10 systems reviewed except as stated in history of present illness. PHYSICAL EXAMINATION: VITAL SIGNS: Blood pressure 114/70, pulse 75, temperature 98.1. GENERAL: She is in no acute distress. Alert and oriented x3. HEENT: Eyes have no scleral icterus. Oropharynx is clear without lesions. No cervical or supraclavicular lymphadenopathy. LUNGS: Clear to auscultation bilaterally. HEART: Regular rate and rhythm without murmur. ABDOMEN: Soft. Minimal tenderness in the left lower quadrant without guarding. Bowel sounds are present. EXTREMITIES: No lower extremity edema. LABORATORY DATA: INR 1.0. White blood cell count 7.5, hemoglobin 15.1, platelets 247, potassium 2.6, creatinine is 1.37, up from baseline of 0.86, bilirubin 0.8, AST 31, ALT 29, alkaline phosphatase 195, albumin 4.2. IMPRESSION: 1. Chronic diarrhea, which is uncontrolled on Imodium 2 tablets every 4 hours. Stool studies have been negative previously and are being repeated again now. She attempted empiric treatment with vancomycin for Clostridium difficile, but she only got two doses and threw those up. She did have ischemic colitis back in November by colonoscopy, and she could have chronic ischemic colitis causing her problems at this point. She did not have significant stenosis of the celiac arteries or superior mesenteric artery or inferior mesenteric artery by a previous CT scan reviewed by my GI colleague, Dr. Foster. If her stool studies continue to be negative, then followup colonoscopy might ultimately be required to assess healing of her ischemic colitis. Course given her now acute severe dehydration, recurrent acute ischemic colitis could be going on as well. 2. Chronic nausea. She reports a 40-pound weight loss over the last several months since November. CT scan is negative. 3. Dehydration and acute renal failure. RECOMMENDATIONS: 1. The primary treatment for swallow will be rehydration and IV fluids. 2. Stool studies will be repeated including Clostridium difficile. 3. We will see how she does clinically over the next couple of days with IV rehydration and consider followup colonoscopy in the future potentially within the next few days to reassess her chronic diarrhea and status of her ischemic colitis. We would want to see improvement in her nausea and dehydration renal failure before pursuing a bowel prep. Job ID: [id number]
[2019-09-19] MEDS: Heparin 5,000 UNITS/ML VIAL SC SCH (21:00)
[2019-09-19] MEDS: Insulin Glargine 85 UNITS in Pre-Filled Syringe 1 EACH SC SCH (21:00)
[2019-09-19] MEDS ORDERED: INSULIN DETEMIR 85 UNIT SQ SCH (21:00)
[2019-09-20] MEDS: Vancomycin HCl 25 MG/ML Oral PO SCH ×2 (00:43→05:50)
[2019-09-20] MEDS: NS 0.9% w/ 40 MEQ KCL 1,000 ML IV SCH ×2 (05:50→19:05)
[2019-09-20] MEDS: Levothyroxine Sodium 112 MCG TAB PO SCH (05:50)
[2019-09-20 06:38] LABS: Anion Gap 13 mmol/L (10-20); BUN (Urea Nitrogen) 10 mg/dL (9.8-20.1); Calc. Creatinine Clearance 71 mL/min (70-130); Calcium 8.6 mg/dL (7.8-10.44); Carbon Dioxide 21 mmol/L (23-31); Chloride 104 mmol/L (98-107); Estimated GFR-MDRD 46; Glucose 108 mg/dL (80-115); Potassium 3.5 mmol/L (3.5-5.1); Sodium 134 mmol/L (136-145)
[2019-09-20 06:42] LABS: #Eosinphils 0.5 thou/uL (0.0-0.7); #Lymphocytes 1.1 thou/uL (1.20-3.40); #Monocytes 0.5 thou/uL (0.11-0.59); %Basophils 0.7 % (0.0-1.0); %Eosinophils 9.5 % (0.0-10.0); %Lymphocytes 21.8 % (21.0-51.0); %Monocytes 9.4 % (0.0-10.0); %Neutrophils 58.6 % (42.0-75.0); Hemoglobin 13.7 g/dL (12.0-16.0); Mean Corpuscular HGB CONC 32.4 g/dL (32.0-36.0); Mean Corpuscular Volume 92.6 fL (78.0-98.0); Mean Platelet Volume 8.7 fL (7.4-10.4); Platelet Count 236 thou/uL (130-400); Red Blood Cell (RBC) Count 4.56 mill/uL (4.20-5.40); White Blood Cell (WBC) Count 5.1 thou/uL (4.8-10.8)
[2019-09-20] MEDS: Mometasone 200 MCG/Formoterol 5 MCG 120 PUFF INHALER INH SCH ×2 (07:04→19:06)
[2019-09-20] MEDS: Fish Oil 1,000 MG CAP PO SCH (08:49)
[2019-09-20] MEDS: HumaLOG 300 UNITS/3 ML VIAL SC SCH ×3 (08:49→16:01)
[2019-09-20] MEDS: Loratadine 10 MG TAB PO SCH (08:50)
[2019-09-20] MEDS: Ubidecarenone 50 MG CAP PO SCH (08:51)
[2019-09-20] MEDS: Venlafaxine HCl XR 75 MG CAP PO SCH (08:52)
[2019-09-20] MEDS: Heparin 5,000 UNITS/ML VIAL SC SCH ×3 (08:54→20:41)
--- NOTE | 2019-09-20 14:51 | PDOC.HOSPP ---
- Subjective Subjective: Seen and examined. Patient states that she has had roughly 12 bowel movements and spent a large portion of the night on the commode. No vomiting. Nauseous at times. C. diff was found to be negative. We have stopped antibiotics. With IV fluid resuscitation her renal function is down trending. Patient appears to be improving. Time was given for questions, all answered in detail. - Objective Vital Signs & Weight: Vital Signs (12 hours) Temp Pulse Pulse Resp BP BP Pulse Ox 09/20/19 10:13 83 110/72 09/20/19 07:40 97.6 F 73 18 117/70 97 09/20/19 05:29 97 09/20/19 05:21 98.0 F 73 16 119/68 97 Pulse Ox 09/20/19 10:13 99 09/20/19 07:40 09/20/19 05:29 09/20/19 05:21 Weight Weight 216 lb 14.958 oz I&O: 09/19/19 09/20/19 09/21/19 06:59 06:59 06:59 Intake Total 390 Balance 390 Result Diagrams: 09/20/19 06:01 09/20/19 06:01 Radiology Reviewed by me: Yes Hospitalist ROS - Review of Systems All other systems reviewed; all pertinent +/- noted in HPI/Subj - Medication Medications: Active Medications Generic Name Dose Route Start Last Admin Trade Name Freq PRN Reason Stop Dose Admin Coenzyme Q10 100 mg 09/20/19 09:00 09/20/19 08:51 Coenzyme Q10 PO Not Given DAILY [facility] Fish Oil 1,000 mg 09/20/19 09:00 09/20/19 08:49 Fish Oil PO Not Given DAILY [facility] Heparin Sodium (Porcine) 5,000 units 09/19/19 21:00 09/20/19 08:54 Heparin SC 5,000 units TID BAUTISTA Administration Potassium Chloride/Sodium Chloride 1,000 mls @ 75 mls/hr 09/19/19 15:30 09/19 05:50 Ns 0.9% W/ 40 Meq Kcl IV 1,000 mls .[id number] BAUTSITA Administration Insulin Glargine 85 units/ 0.85 mls @ 0 mls/hr 09/19/19 21:00 09/19/19 21:00 Miscellaneous Medication SC Not Given HS BAUTISTA Insulin Human Lispro 10 units 09/19/19 17:00 09/20/19 13:18 Humalog SC Not Given TID-WM [facility] Levothyroxine Sodium 112 mcg 09/20/19 06:00 09/20/19 05:50 Synthroid PO 112 mcg 0600 BAUTISTA Administration Loratadine 10 mg 09/20/19 09:00 09/20/19 08:50 Claritin PO Not Given DAILY [facility] Mometasone Furoate/Formoterol Fumar 1 puff 09/19/19 18:30 09/20/19 07:04 Dulera 200 Mcg/5 Mcg Inhaler INH 1 puff BID-RT BAUTISTA Administration Ondansetron HCl 4 mg 09/19/19 15:23 09/20/19 05:52 Zofran Odt PO 4 mg Q6H PRN Administration Nausea/Vomiting Ondansetron HCl 4 mg 09/19/19 15:23 09/19/19 19:16 Zofran IVP 4 mg Q6H PRN Administration Nausea/Vomiting Pantoprazole Sodium 40 mg 09/20/19 09:00 09/20/19 08:50 Protonix PO Not Given DAILY [facility] Venlafaxine HCl 75 mg 09/20/19 09:00 09/20/19 08:52 Effexor Xr PO Not Given DAILY [facility] - Exam General Appearance: NAD, awake alert Eye: anicteric sclera ENT: normocephalic atraumatic, moist mucosa Neck: supple, symmetric, no JVD, no thyromegaly Heart: no murmur, no gallops, no rubs Respiratory: CTAB, no wheezes, no rales, no ronchi, normal chest expansion, no tachypnea Gastrointestinal: soft, non-tender, non-distended, normal bowel sounds, no guarding, no rigidity Extremities: no edema Skin: no lesions, no rashes Neurological: cranial nerve grossly intact, no focal deficits Musculoskeletal: generalized weakness Psychiatric: normal affect, normal behavior, A&O x 3 Hosp A/P (1) GINA (acute kidney injury) Code(s): N17.9 - ACUTE KIDNEY FAILURE, UNSPECIFIED Status: Acute (2) Colitis Code(s): K52.9 - NONINFECTIVE GASTROENTERITIS AND COLITIS, UNSPECIFIED Status : Acute (3) Diarrhea Code(s): R19.7 - DIARRHEA, UNSPECIFIED Status: Acute (4) HLD (hyperlipidemia) Code(s): E78.5 - HYPERLIPIDEMIA, UNSPECIFIED Status: Acute (5) Shoulder fracture, right Code(s): S42.91XA - FRACTURE OF RIGHT SHOULDER GIRDLE, PART UNSP, INIT Status : Acute (6) Diabetes mellitus, insulin dependent (IDDM), uncontrolled Code(s): E11.65 - TYPE 2 DIABETES MELLITUS WITH HYPERGLYCEMIA; Z79.4 - LONGTERM (CURRENT) USE OF INSULIN Status: Chronic (7) HTN (hypertension) Code(s): I10 - ESSENTIAL (PRIMARY) HYPERTENSION Status: Chronic Qualifiers: Hypertension type: essential hypertension Qualified Code(s): I10 - Essential (primary) hypertension (8) Hypothyroidism Code(s): E03.9 - HYPOTHYROIDISM, UNSPECIFIED Status: Chronic - Plan Plan: medical unit gastroenterology consultation, recommendations appreciated Clostridium difficile found to be negative, ABX discontinued patient not having persistent vomiting and does not require nasogastric tube IV fluid resuscitation replace electrolytes as needed renal function normalizing patient may benefit from repeat endoscopy has inpatient versus outpatient long and short acting insulin for glucose control blood pressure control G.I. prophylaxis DVT prophylaxis
--- NOTE | 2019-09-20 17:39 | PRG ---
DATE OF SERVICE: 09/20/2019 SUBJECTIVE: Ms. Hendrix still has around 8 bowel movements today, but they are lower volume. She has had no vomiting today, but still having nausea. OBJECTIVE: VITAL SIGNS: Temperature 97.6, pulse 73, blood pressure 110/72. GENERAL: She is in no acute distress. Alert and oriented x3. LUNGS: Clear to auscultation bilaterally. HEART: Regular rate and rhythm without murmur. ABDOMEN: Soft. Mild tenderness in the lower abdomen. Bowel sounds are present. EXTREMITIES: No lower extremity edema. LABORATORY DATA: Hemoglobin was 15.1 yesterday, down to 13.7 today. Creatinine 1.16. IMPRESSION: 1. Chronic diarrhea, uncontrolled, on Imodium 2 tablets every 4 hours. Stool studies repeated again for C diff are negative. Repeat O and P send out is pending. She had ischemic colitis back last fall and this could be more of a chronic ischemic colitis versus other source. 2. Chronic nausea. 3. She reports a 40-pound weight loss over the last several months. 4. Dehydration and acute renal failure, improving with IV fluids. RECOMMENDATIONS: 1. We will continue fluids and antiemetics today. 2. Tomorrow, we will attempt bowel prep in anticipation of EGD and colonoscopy for Saturday with Dr. Foster. She is concerned about the volume of the bowel prep and her chronic nausea. Job ID: [id number]
[2019-09-20] MEDS: Ondansetron PF 4 MG/2 ML Vial IVP PRN (20:39)
[2019-09-20] MEDS: Insulin Glargine 85 UNITS in Pre-Filled Syringe 1 EACH SC SCH (20:40)
[2019-09-20] MEDS: Promethazine 25 MG TAB PO PRN (22:09)
[2019-09-21] MEDS: NS 0.9% w/ 40 MEQ KCL 1,000 ML IV SCH ×3 (01:14→23:10)
[2019-09-21] MEDS: Levothyroxine Sodium 112 MCG TAB PO SCH (05:07)
[2019-09-21] MEDS: Mometasone 200 MCG/Formoterol 5 MCG 120 PUFF INHALER INH SCH ×2 (06:52→18:26)
[2019-09-21] MEDS: HumaLOG 300 UNITS/3 ML VIAL SC SCH ×3 (08:16→17:10)
[2019-09-21] MEDS: Loratadine 10 MG TAB PO SCH (08:18)
[2019-09-21] MEDS: Fish Oil 1,000 MG CAP PO SCH (08:18)
[2019-09-21] MEDS: Heparin 5,000 UNITS/ML VIAL SC SCH ×3 (08:21→22:28)
[2019-09-21] MEDS: Ubidecarenone 50 MG CAP PO SCH (08:23)
[2019-09-21] MEDS: Venlafaxine HCl XR 75 MG CAP PO SCH (08:23)
[2019-09-21] MEDS ORDERED: GoLYTELY 4,000 ml Bottle PO SCH (14:00)
[2019-09-21 15:22] LABS: SARS-CoV-2 MS2 Positive; SARS-CoV-2 N Gene Negative; SARS-CoV-2 S Gene Negative; SARS-CoV-2 by NAA Not Detected (NotDetected); SARS-CoV-2 orf1ab Negative
--- NOTE | 2019-09-21 15:47 | PDOC.HOSPP ---
- Subjective Subjective: Seen and examined. Still with diarrhea. Not eating or drinking much. Overall she is feeling mildly better. Gastroenterology is talking about possible endoscopy, though she has not started her prep. - Objective Vital Signs & Weight: Vital Signs (12 hours) Temp Pulse Resp BP Pulse Ox 09/21/19 12:33 98.1 F 68 18 122/78 98 09/21/19 08:00 98.2 F 69 99 09/21/19 07:58 98.2 F 69 18 97/48 L 97 Weight Admit Weight 216 lb 14.958 oz Weight 216 lb 14.958 oz I&O: 09/20/19 09/21/19 09/22/19 06:59 06:59 06:59 Intake Total 390 1260 540 Balance 390 1260 540 Result Diagrams: 09/20/19 06:01 09/20/19 06:01 Additional Labs: Accuchecks 09/21/19 09/21/19 12:13 05:22 POC Glucose 128 H 93 Radiology Reviewed by me: Yes Hospitalist ROS - Review of Systems All other systems reviewed; all pertinent +/- noted in HPI/Subj - Medication Medications: Active Medications Generic Name Dose Route Start Last Admin Trade Name Freq PRN Reason Stop Dose Admin Coenzyme Q10 100 mg 09/20/19 09:00 09/21/19 08:23 Coenzyme Q10 PO Not Given DAILY [facility] Fish Oil 1,000 mg 09/20/19 09:00 09/21/19 08:18 Fish Oil PO Not Given DAILY [facility] Heparin Sodium (Porcine) 5,000 units 09/19/19 21:00 09/21/19 08:21 Heparin SC Not Given TID [facility] Potassium Chloride/Sodium Chloride 1,000 mls @ 75 mls/hr 09/19/19 15:30 09/20 12:32 Ns 0.9% W/ 40 Meq Kcl IV 1,000 mls .[id number] [facility] Administration Insulin Glargine 85 units/ 0.85 mls @ 0 mls/hr 09/19/19 21:00 09/20/19 20:40 Miscellaneous Medication SC Not Given HS [facility] Insulin Human Lispro 10 units 09/19/19 17:00 09/21/19 12:34 Humalog SC Not Given TID-WM [facility] Levothyroxine Sodium 112 mcg 09/20/19 06:00 09/21/19 05:07 Synthroid PO 112 mcg 0600 [facility] Administration Loratadine 10 mg 09/20/19 09:00 09/21/19 08:18 Claritin PO Not Given DAILY [facility] Mometasone Furoate/Formoterol Fumar 1 puff 09/19/19 18:30 09/21/19 06:52 Dulera 200 Mcg/5 Mcg Inhaler INH 1 puff BID-RT [facility] Administration Ondansetron HCl 4 mg 09/19/19 15:23 09/20/19 05:52 Zofran Odt PO 4 mg Q6H PRN Administration Nausea/Vomiting Ondansetron HCl 4 mg 09/19/19 15:23 09/20/19 20:39 Zofran IVP 4 mg Q6H PRN Administration Nausea/Vomiting Pantoprazole Sodium 40 mg 09/20/19 09:00 09/21/19 08:18 Protonix PO Not Given DAILY [facility] Promethazine HCl 25 mg 09/19/19 16:44 09/20/19 22:09 Phenergan PO 25 mg Q6H PRN Administration Nausea/Vomiting Venlafaxine HCl 75 mg 09/20/19 09:00 09/21/19 08:23 Effexor Xr PO Not Given DAILY [facility] - Exam General Appearance: NAD, awake alert Eye: anicteric sclera ENT: normocephalic atraumatic, moist mucosa Neck: supple, symmetric, no lymphadenopathy Heart: RRR, no murmur, no gallops Respiratory: CTAB, no wheezes, no rales, no ronchi, normal chest expansion Gastrointestinal: soft, non-tender, no guarding, no rigidity Extremities: no edema Skin: no lesions, no rashes Neurological: cranial nerve grossly intact, no focal deficits Musculoskeletal: generalized weakness Psychiatric: normal behavior, A&O x 3 Hosp A/P (1) GINA (acute kidney injury) Code(s): N17.9 - ACUTE KIDNEY FAILURE, UNSPECIFIED Status: Acute (2) Colitis Code(s): K52.9 - NONINFECTIVE GASTROENTERITIS AND COLITIS, UNSPECIFIED Status : Acute (3) Diarrhea Code(s): R19.7 - DIARRHEA, UNSPECIFIED Status: Acute (4) HLD (hyperlipidemia) Code(s): E78.5 - HYPERLIPIDEMIA, UNSPECIFIED Status: Acute (5) Shoulder fracture, right Code(s): S42.91XA - FRACTURE OF RIGHT SHOULDER GIRDLE, PART UNSP, INIT Status : Acute (6) Diabetes mellitus, insulin dependent (IDDM), uncontrolled Code(s): E11.65 - TYPE 2 DIABETES MELLITUS WITH HYPERGLYCEMIA; Z79.4 - SNF (CURRENT) USE OF INSULIN Status: Chronic (7) HTN (hypertension) Code(s): I10 - ESSENTIAL (PRIMARY) HYPERTENSION Status: Chronic Qualifiers: Hypertension type: essential hypertension Qualified Code(s): I10 - Essential (primary) hypertension (8) Hypothyroidism Code(s): E03.9 - HYPOTHYROIDISM, UNSPECIFIED Status: Chronic - Plan Plan: medical unit gastroenterology consultation, recommendations appreciated Clostridium difficile found to be negative, ABX discontinued patient not having persistent vomiting and does not require nasogastric tube IV fluid resuscitation replace electrolytes as needed renal function normalizing patient may benefit from repeat endoscopy, has not started prep yet long and short acting insulin for glucose control blood pressure control G.I. prophylaxis DVT prophylaxis
--- NOTE | 2019-09-21 18:15 | PRG ---
DATE OF SERVICE: 09/20/2019 SUBJECTIVE: She has had no vomiting. She is working on drinking her bowel prep now. PHYSICAL EXAMINATION: VITAL SIGNS: Temperature 98.1, pulse 68, blood pressure 122/78. GENERAL: She is in no acute distress. Alert and oriented x3. LUNGS: Clear to auscultation bilaterally. HEART: Regular rate and rhythm without murmur. ABDOMEN: Soft, nontender, and nondistended. Bowel sounds are present. EXTREMITIES: No lower extremity edema. LABORATORY DATA: White blood cell count 5.1, hemoglobin 13.7, platelets 236, that is from yesterday. COVID test is negative. IMPRESSION: 1. Chronic diarrhea with incontinence, which persists despite Imodium every 4 hours. Repeat C diff is negative. O and P send out is pending. She did have ischemic colitis last fall and she is undergoing further workup of her chronic diarrhea now, which could be related to more of a chronic ischemic colitis versus other source. 2. Chronic nausea. 3. 40-pound weight loss over the last several months. 4. Dehydration, acute renal failure. Currently improved. RECOMMENDATIONS: EGD and colonoscopy tomorrow. Job ID: [id number]
[2019-09-21] MEDS: Promethazine 25 MG TAB PO PRN (23:10)
[2019-09-22] MEDS: Levothyroxine Sodium 112 MCG TAB PO SCH (05:50)
[2019-09-22] MEDS: Mometasone 200 MCG/Formoterol 5 MCG 120 PUFF INHALER INH SCH ×2 (07:21→19:03)
[2019-09-22] MEDS: Heparin 5,000 UNITS/ML VIAL SC SCH ×3 (10:23→20:32)
[2019-09-22] MEDS: Loratadine 10 MG TAB PO SCH (10:23)
[2019-09-22] MEDS: HumaLOG 300 UNITS/3 ML VIAL SC SCH ×3 (10:24→17:24)
[2019-09-22] MEDS ORDERED: Diphenoxylate HCl/Atropine Tablet PO PRN (11:06)
--- NOTE | 2019-09-22 13:59 | OP ---
DATE OF PROCEDURE: 09/22/2019 INDICATIONS FOR PROCEDURE: Chronic diarrhea, nausea, and vomiting. PROCEDURES PERFORMED: 1. Esophagogastroduodenoscopy with biopsy. 2. Colonoscopy with biopsy. DESCRIPTION OF PROCEDURES: After the risks and benefits of the procedures were explained to the patient including risks of bleeding, infection, perforation, reactions to anesthesia, aspiration, and/or pain, informed consent was obtained. The patient was then taken to the endoscopy suite where she was maneuvered into the left lateral decubitus position followed by introduction of deep sedation via propofol and anesthesia support. Once adequate sedation was achieved, the standard gastroscope was introduced into the mouth with intubation of the esophagus, stomach, and the proximal small intestines with the findings listed below. Upon completion of this portion of the procedure, all equipment was removed from the patient and the bed was rotated 180 degrees in anticipation of the colonoscopy. After a digital rectal examination was performed, the standard colonoscope was then advanced to the terminal ileum with some difficulty due to poor colonic preparation and poor visualization. The patient tolerated the procedure well with no immediate perioperative complications. Upon conclusion of the procedure, all equipment was removed from the patient and she was transferred to PACU in satisfactory condition. EGD FINDINGS: Esophagus: Normal-appearing mucosa was seen in both the proximal and mid esophagus. A linear erosion was seen extending proximally from the gastroesophageal junction, measuring approximately 5 to 7 mm in length. It did not display any overt ulceration and there were no other further erosions. Otherwise, there was no evidence of ulcerations, mass lesions, or active/recent bleeding. Stomach: Mild mucosal erythema in a mosaic like pattern was seen in the gastric cardia and fundus, but transitioning to normal-appearing mucosa within the gastric body. Given this nonspecific gastropathy, biopsies were obtained for further evaluation. A 4-mm mcelroy/flesh-colored polyp was seen in the gastric body and biopsied for further evaluation. Otherwise normal-appearing mucosa was seen in the gastric body, greater curvature, antrum, and incisura. There was no evidence of erosions, ulcerations, mass lesions, or active/recent bleeding. Duodenum: Normal-appearing mucosa was seen in the duodenal bulb; however, upon entering the second portion of the duodenum, multiple small erosions as well as what appeared to be very superficial ulcerations, measuring 2 to 4 mm in size, were seen in the second portion, that seemed to be in a state of healing. There was no evidence of mass lesions or active/recent bleeding. Multiple biopsies were then taken from the duodenum in a random type fashion including the erosions and ulcerations and placed in a specimen jar for further evaluation. IMPRESSION: 1. LA grade B reflux-mediated erosive esophagitis. 2. Mild nonspecific gastropathy of the proximal stomach status post biopsies. 3. A 4 mm mcelroy/flesh-colored polyp consistent with fundic gland polyp status post biopsies. 4. Multiple very small erosions and possible superficial ulcerations in the second portion of duodenum status post biopsies. COLONOSCOPY FINDINGS: Digital rectal exam: Normal findings were seen on external examination, but poor sphincter tone was elicited upon digital palpation. Colon findings: A large amount of adherent stool was seen throughout the entire colon, limiting visualization of the colonic mucosa significantly. Lesions less than 1 cm in size could have been missed. Of the mucosa visualized, normal-appearing mucosa was seen within the terminal ileum as well as the appendiceal orifice and ileocecal valve. Normal-appearing mucosa was then seen in the cecum, ascending colon, transverse colon, descending colon, sigmoid colon, and rectum. Random colonic biopsies were taken from the ascending, transverse, descending, sigmoid colon, and rectum and placed in a specimen jar for further evaluation of possible microscopic colitis. Small internal hemorrhoids were seen on rectal retroflexion. IMPRESSION: 1. Poor colonic preparation, limiting adequate visualization of the colonic mucosa with lesions less than 1 cm in size possibly missed. 2. No evidence of ischemic colitis seen during this examination with normal colonic mucosa seen throughout the entire colon. 3. Small internal hemorrhoids. RECOMMENDATIONS: 1. We would follow up on the biopsy results with repeat colonoscopy interval depending on the pathology report. 2. Would continue with IV fluid resuscitation and replacements of electrolytes as needed. 3. Would continue with antidiarrheal medications to include either loperamide or atropine/diphenoxylate. 4. Would consider discontinuation of PPI in favor of an H2 mendez given the increased risk of microscopic colitis. 5. If the biopsy results are unrevealing, would then consider hormonal workup for chronic diarrhea. 6. Would avoid any NSAIDs. We will continue to follow. Please call with any questions. Job ID: [id number]
[2019-09-22] MEDS ORDERED: PROPOFOL 200 MG/20 ML VIAL ONE (14:27)
--- NOTE | 2019-09-22 14:34 | PDOC.HOSPP ---
- Subjective Subjective: Seen and examined. Patient back from endoscopy. Not feeling nauseous today. Has not eaten or drinking much day though. Alternating nausea medicines has seem to help her in the past couple days. No new complaints. Time was given for questions, all answered in detail. - Objective Vital Signs & Weight: Vital Signs (12 hours) Temp Pulse Resp BP Pulse Ox 09/22/19 10:30 97 09/22/19 05:32 98.3 F 90 18 101/68 99 Weight Admit Weight 216 lb 14.958 oz Weight 216 lb 14.958 oz I&O: 09/21/19 09/22/19 09/23/19 06:59 06:59 06:59 Intake Total 1260 7550 Output Total 1000 Balance 1260 6550 Result Diagrams: 09/20/19 06:01 09/20/19 06:01 Additional Labs: Accuchecks 09/22/19 09/22/19 09/20/19 10:37 04:52 20:40 POC Glucose 108 102 107 09/20/19 09/20/19 09/20/19 16:39 12:12 05:32 POC Glucose 113 H 105 96 09/19/19 09/19/19 21:10 18:13 POC Glucose 169 H 115 H Radiology Reviewed by me: Yes Hospitalist ROS - Review of Systems All other systems reviewed; all pertinent +/- noted in HPI/Subj - Medication Medications: Active Medications Generic Name Dose Route Start Last Admin Trade Name Freq PRN Reason Stop Dose Admin Heparin Sodium (Porcine) 5,000 units 09/19/19 21:00 09/22/19 10:23 Heparin SC 5,000 units TID [facility] Administration Potassium Chloride/Sodium Chloride 1,000 mls @ 75 mls/hr 09/19/19 15:30 09/20 23:10 Ns 0.9% W/ 40 Meq Kcl IV 1,000 mls .[id number] [facility] Administration Insulin Human Lispro 10 units 09/19/19 17:00 09/22/19 12:35 Humalog SC Not Given TID-WM [facility] Levothyroxine Sodium 112 mcg 09/20/19 06:00 09/22/19 05:50 Synthroid PO Not Given 0600 [facility] Loratadine 10 mg 09/20/19 09:00 09/22/19 10:23 Claritin PO Not Given DAILY [facility] Mometasone Furoate/Formoterol Fumar 1 puff 09/19/19 18:30 09/22/19 07:21 Dulera 200 Mcg/5 Mcg Inhaler INH Not Given BID-RT [facility] Ondansetron HCl 4 mg 09/19/19 15:23 09/20/19 05:52 Zofran Odt PO 4 mg Q6H PRN Administration Nausea/Vomiting Ondansetron HCl 4 mg 09/19/19 15:23 09/20/19 20:39 Zofran IVP 4 mg Q6H PRN Administration Nausea/Vomiting Pantoprazole Sodium 40 mg 09/20/19 09:00 09/22/19 10:22 Protonix PO 40 mg DAILY [facility] Administration Promethazine HCl 25 mg 09/19/19 16:44 09/21/19 23:10 Phenergan PO 25 mg Q6H PRN Administration Nausea/Vomiting - Exam General Appearance: NAD, awake alert Eye: PERRL ENT: normocephalic atraumatic, moist mucosa Neck: supple, symmetric, no lymphadenopathy Heart: RRR, no murmur, no gallops, no rubs Respiratory: CTAB, no wheezes, no rales, no ronchi, normal chest expansion, no tachypnea Gastrointestinal: soft, non-tender, no guarding, no rigidity Skin: no lesions, no rashes Neurological: cranial nerve grossly intact, no focal deficits Musculoskeletal: generalized weakness Psychiatric: normal affect, A&O x 3 Hosp A/P (1) GINA (acute kidney injury) Code(s): N17.9 - ACUTE KIDNEY FAILURE, UNSPECIFIED Status: Acute (2) Colitis Code(s): K52.9 - NONINFECTIVE GASTROENTERITIS AND COLITIS, UNSPECIFIED Status : Acute (3) Diarrhea Code(s): R19.7 - DIARRHEA, UNSPECIFIED Status: Acute (4) HLD (hyperlipidemia) Code(s): E78.5 - HYPERLIPIDEMIA, UNSPECIFIED Status: Acute (5) Shoulder fracture, right Code(s): S42.91XA - FRACTURE OF RIGHT SHOULDER GIRDLE, PART UNSP, INIT Status : Acute (6) Diabetes mellitus, insulin dependent (IDDM), uncontrolled Code(s): E11.65 - TYPE 2 DIABETES MELLITUS WITH HYPERGLYCEMIA; Z79.4 - GROUP HOME (CURRENT) USE OF INSULIN Status: Chronic (7) HTN (hypertension) Code(s): I10 - ESSENTIAL (PRIMARY) HYPERTENSION Status: Chronic Qualifiers: Hypertension type: essential hypertension Qualified Code(s): I10 - Essential (primary) hypertension (8) Hypothyroidism Code(s): E03.9 - HYPOTHYROIDISM, UNSPECIFIED Status: Chronic - Plan Plan: medical unit gastroenterology consultation, recommendations appreciated S/p endoscopy on 09/22/2019 - see full operative report for details Clostridium difficile found to be negative, ABX discontinued PRN medications for N/v Finished IV fluid resuscitation replace electrolytes as needed renal function normalized short acting insulin for glucose control blood pressure control G.I. prophylaxis DVT prophylaxis
[2019-09-22] MEDS: Promethazine 25 MG TAB PO PRN (20:33)
[2019-09-23] MEDS: Levothyroxine Sodium 112 MCG TAB PO SCH (05:21)
[2019-09-23 06:32] LABS: Anion Gap 10 mmol/L (10-20); BUN (Urea Nitrogen) Less than 4 mg/dL (9.8-20.1); Calc. Creatinine Clearance 103 mL/min (70-130); Calcium 8.1 mg/dL (7.8-10.44); Carbon Dioxide 26 mmol/L (23-31); Chloride 109 mmol/L (98-107); Estimated GFR-MDRD 71; Glucose 105 mg/dL (80-115); Sodium 141 mmol/L (136-145)
[2019-09-23] MEDS: Mometasone 200 MCG/Formoterol 5 MCG 120 PUFF INHALER INH SCH ×2 (06:58→18:50)
[2019-09-23] MEDS: HumaLOG 300 UNITS/3 ML VIAL SC SCH ×3 (09:15→17:25)
[2019-09-23] MEDS: Heparin 5,000 UNITS/ML VIAL SC SCH ×3 (09:30→20:23)
[2019-09-23] MEDS: Loratadine 10 MG TAB PO SCH (09:31)
--- NOTE | 2019-09-23 12:15 | PRG ---
DATE OF SERVICE: 09/23/2019 SUBJECTIVE: The patient is sitting up by bedside without any complaint. She was able to tolerate sandwich and eggs without any nausea or vomiting. She has not had any bowel movement or diarrhea since the procedure yesterday. She denies having any abdominal pain. OBJECTIVE: VITAL SIGNS: Temperature is 97.7, blood pressure 113/67, pulse of 75. GENERAL: She is alert, conversant without any distress. HEENT: Anicteric sclerae. Oropharynx is moist. CV: Normal S1, S2. Regular rate and rhythm. CHEST: Breath sounds. ABDOMEN: Mildly protuberant but soft and nontender. No distention. No tympany. She has active bowel sounds. EXTREMITIES: No edema. LABORATORY DATA: Electrolytes are within normal range. Creatinine is 0.8, calcium 8.1. Biopsy of stomach and colon is normal. Biopsy of the small intestine showed intraepithelial lymphocytosis and villous blunting consistent with celiac disease/gluten-sensitive enteropathy. ASSESSMENT: 1. Chronic diarrhea with negative workup for any infectious etiology. Colonoscopy did not show any overt colitis, and biopsy did not show any evidence of microscopic colitis. Small bowel biopsy is suggestive of celiac disease. The patient has had chronic diarrhea well before recent worsening over the last several months. 2. Nausea vomiting, intermittent. Negative EGD. Could be related to celiac disease. 3. Significant weight loss of 40 pounds. 4. Acute renal failure from dehydration, resolved. RECOMMENDATIONS: 1. We will check gluten antibodies. 2. We will place the patient on gluten-free diet. 3. Dietary consult to educate the patient including free diet today. 4. The patient can be discharged to home tomorrow with outpatient followup in GI clinic. Job ID: [id number] [facility]
[2019-09-23 14:38] LABS: Routine O & P Final report (.)
--- NOTE | 2019-09-23 18:56 | PDOC.HOSPP ---
- Subjective Subjective: Seen and examined. She is happy and satisfied with the work from gastroenterology giving a name to her illness. Hopefully with diet modifications her symptoms will subside. She was speaking with the dietitian today, learning good information. Was given for questions, all answered in detail. - Objective Vital Signs & Weight: Vital Signs (12 hours) Temp Pulse Resp BP Pulse Ox 09/23/19 18:50 97 09/23/19 08:35 97.7 F 75 16 113/67 100 09/23/19 06:58 71 16 97 Weight Admit Weight 216 lb 14.958 oz Weight 216 lb 14.958 oz I&O: 09/22/19 09/23/19 09/24/19 06:59 06:59 06:59 Intake Total 7550 2500 Output Total 1000 Balance 6550 2500 Result Diagrams: 09/20/19 06:01 09/23/19 05:45 Radiology Reviewed by me: Yes Hospitalist ROS - Review of Systems All other systems reviewed; all pertinent +/- noted in HPI/Subj - Medication Medications: Active Medications Generic Name Dose Route Start Last Admin Trade Name Freq PRN Reason Stop Dose Admin Heparin Sodium (Porcine) 5,000 units 09/19/19 21:00 09/23/19 15:00 Heparin SC 5,000 units TID [facility] Administration Insulin Human Lispro 10 units 09/19/19 17:00 09/23/19 17:25 Humalog SC Not Given TID-WM [facility] Levothyroxine Sodium 112 mcg 09/20/19 06:00 09/23/19 05:21 Synthroid PO 112 mcg 0600 [facility] Administration Loratadine 10 mg 09/20/19 09:00 09/23/19 09:31 Claritin PO Not Given DAILY [facility] Mometasone Furoate/Formoterol Fumar 1 puff 09/19/19 18:30 09/23/19 18:50 Dulera 200 Mcg/5 Mcg Inhaler INH 1 puff BID-RT [facility] Administration Ondansetron HCl 4 mg 09/19/19 15:23 09/20/19 05:52 Zofran Odt PO 4 mg Q6H PRN Administration Nausea/Vomiting Ondansetron HCl 4 mg 09/19/19 15:23 09/20/19 20:39 Zofran IVP 4 mg Q6H PRN Administration Nausea/Vomiting Promethazine HCl 25 mg 07/18/20 16:44 09/22/19 20:33 Phenergan PO 25 mg Q6H PRN Administration Nausea/Vomiting - Exam General Appearance: NAD, awake alert Eye: PERRL ENT: normocephalic atraumatic, moist mucosa Neck: supple, symmetric, no lymphadenopathy Heart: no murmur, no gallops, no rubs Respiratory: CTAB, no wheezes, no rales, no ronchi, normal chest expansion Gastrointestinal: soft, non-tender, non-distended, no guarding, no rigidity Extremities: no edema Skin: no lesions, no rashes Neurological: cranial nerve grossly intact, no focal deficits Musculoskeletal: generalized weakness Psychiatric: A&O x 3 Hosp A/P (1) GINA (acute kidney injury) Code(s): N17.9 - ACUTE KIDNEY FAILURE, UNSPECIFIED Status: Acute (2) Colitis Code(s): K52.9 - NONINFECTIVE GASTROENTERITIS AND COLITIS, UNSPECIFIED Status : Acute (3) Diarrhea Code(s): R19.7 - DIARRHEA, UNSPECIFIED Status: Acute (4) HLD (hyperlipidemia) Code(s): E78.5 - HYPERLIPIDEMIA, UNSPECIFIED Status: Acute (5) Shoulder fracture, right Code(s): S42.91XA - FRACTURE OF RIGHT SHOULDER GIRDLE, PART UNSP, INIT Status : Acute (6) Diabetes mellitus, insulin dependent (IDDM), uncontrolled Code(s): E11.65 - TYPE 2 DIABETES MELLITUS WITH HYPERGLYCEMIA; Z79.4 - [employer] (CURRENT) USE OF INSULIN Status: Chronic (7) HTN (hypertension) Code(s): I10 - ESSENTIAL (PRIMARY) HYPERTENSION Status: Chronic Qualifiers: Hypertension type: essential hypertension Qualified Code(s): I10 - Essential (primary) hypertension (8) Hypothyroidism Code(s): E03.9 - HYPOTHYROIDISM, UNSPECIFIED Status: Chronic - Plan Plan: medical unit gastroenterology consultation, recommendations appreciated S/p endoscopy on 09/22/2019 - see full operative report for details - Bx consistent with Celiac disease Diet modifications Clostridium difficile found to be negative, ABX discontinued PRN medications for N/v Finished IV fluid resuscitation replace electrolytes as needed renal function normalized short acting insulin for glucose control blood pressure control G.I. prophylaxis DVT prophylaxis
[2019-09-23] MEDS: Promethazine 25 MG TAB PO PRN (20:22)
[2019-09-23] MEDS: Famotidine 20 MG TAB PO SCH (20:22)
[2019-09-24] MEDS: Levothyroxine Sodium 112 MCG TAB PO SCH (05:49)
[2019-09-24] MEDS: Mometasone 200 MCG/Formoterol 5 MCG 120 PUFF INHALER INH SCH (07:22)
[2019-09-24] MEDS: HumaLOG 300 UNITS/3 ML VIAL SC SCH (09:11)
[2019-09-24] MEDS: Famotidine 20 MG TAB PO SCH (09:11)
[2019-09-24] MEDS: Loratadine 10 MG TAB PO SCH (09:11)
[2019-09-24] MEDS: Heparin 5,000 UNITS/ML VIAL SC SCH (09:12)
[2019-09-24 12:06] LABS: EliA Celiac New Method **** NEW METHOD ****; Gliadin IgA Ab, Deamidated 0.5 EliAU/mL (<7 Negative); Gliadin IgG Ab, Deamidated Less than 0.4 EliAU/mL (<7 Negative); t-Transglutaminase (tTG) IgA 0.3 EliAU/mL (<7 Negative); t-Transglutaminase (tTG) IgG Less than 0.6 EliAU/mL (<7 Negative)
[2019-09-24 12:14] VITALS: BP 142/82; TEMP 98.2
--- NOTE | 2019-09-25 00:22 | DIS ---
DATE OF ADMISSION: 09/19/2019 DATE OF DISCHARGE: 09/24/2019 REASON FOR HOSPITALIZATION: Abdominal pain, nausea, and diarrhea. SIGNIFICANT FINDINGS: The patient was found to have celiac disease per biopsy results from Gastroenterology. PROCEDURES PERFORMED AND TREATMENTS RENDERED: The patient is a 68-year-old female who presented to [facility] on 09/19/2019, with nausea, vomiting, and diarrhea. The patient has been battling this in the outpatient setting and has had a good followup with her outpatient pairer inspector, Dr. Foster. Dr. Foster in the outpatient setting was concerned that she might have Clostridium difficile infection, and she was started empirically on vancomycin. The patient was unable to keep this medication down or any food or liquids, and she presented to [facility] for further evaluation, please see full history and physical for details. The patient with acute kidney injury present on admission, was given IV fluid resuscitation, which normalized her renal function. I repeated stool Clostridium difficile PCR, and this was found to be negative for toxin. Gastroenterology was consulted, please see full consultation notes and progress notes for details. The patient was recommended colonoscopy, which was performed on 09/22/2019, by Dr. Foster, please see full operative report for details. The patient tolerated the procedure well without intraoperative complications. Colonic biopsies were performed. The patient also underwent EGD at the same time and this was also tolerated well without complications. Biopsies were obtained, please see full pathology report for details. Pathology reports were concerning that the patient had a histological appearance consistent with celiac disease. Gastroenterology recommending dietary consultation, and a dietitian did sit with the patient and go over what foods to avoid and dietary modifications to avoid future complications of this disease. The patient was recommended safe for discharge by Gastroenterology on 09/24/2019. The patient tolerating diet and moving bowels without problems at this point. The patient recommended to follow up with Gastroenterology in the next 1 to 3 weeks for close management. The patient recommended to follow up with primary care physician in the next 5 to 7 days. The patient recommended to follow up with Orthopedic Surgery at her upcoming appointment. CONDITION ON DISCHARGE: Stable. SPECIFIC INSTRUCTIONS FOR THE PATIENT/FAMILY: 1. The patient is recommended to take all medications as directed. 2. The patient is recommended to follow up with primary care physician in the next 5 to 7 days. 3. The patient is recommended to follow up with Gastroenterology in the next 3 weeks. 4. The patient is recommended follow up with Orthopedic Surgery at her upcoming appointment. 5. The patient is recommended to follow a celiac diet to avoid future problems and may benefit from keeping a food journal to identify problematic foods. 6. The patient is recommended to return to acute care hospital immediately if she is unable to follow all of the previously mentioned steps. 7. The patient recommended to return to acute care hospital immediately if she has any recurrence of symptoms or any new symptoms occur. DISCHARGE MEDICATIONS: Please see full discharge medication reconciliation for details. TIME SPENT: Greater than 35 minutes spent coordinating care and discharge process for this patient. Job ID: [id number]
--- NOTE | 2019-09-25 07:29 | PQF ---
Dear : Eladio Encarnacion Date: 09/25/19 Please exercise your independent, professional judgment in responding to the clarification form. Clinical indicators are provided on the bottom of this form for your review Can yo please further clarify the diagnosis of the patient? Please check appropriate box(es): [ ] Hyponatremia [ ] Not clinically significant laboratory findings [ ] Other diagnosis please specify [ ] Unable to determine Physician Signature: Date/Time: For continuity of documentation, please document condition throughout progress notes and discharge summary. Thank You. To be completed by CDI/Coding staff for physician review: Present Clinical Indicators - Signs / Symptoms / Labs Results and Location in Medical Record [x ] Lab Results: Sodium 132L, 134L, 141 Laboratory [ x ] Nausea, vomiting and diarrhea H and P pg.1 [ x ] 40 pounds weight loss Consult pg.1 Dr. Mueller Present Risk Factors Results and Location in Medical Record [ x ] GINA H and P pg.1 [x ] Dehydration H and P pg.1 [ x ] GERD Consult pg.1 [ x ] DM Consult pg.1 [ x ] Ischemic colitis Consult pg.1 [ x ] hypothyroidism Consult pg.1 [ x ] 68 years old female HP 09/18 Present Treatments Results and Location in Medical Record [x ] Sodium monitoring Laboratory [ x] IV Fluids MAR [x ] GI Consult Dr. Mueller Consult 09/18 [ x ] NGT tube placement H and P pg.4 CDS/Internet Database Specialist Signature: Alex Suh Phone #: ext [phone] Date: 09/25/19 This is a permanent part of the Medical Record [facility]
== END 2019-09-24 12:22 | disposition home or self-care (01) | DRG 392 ==
LOC: ERS 13:07 → OBSVTOIN 15:57 → T4-B 15:57
PROVIDERS: ADMIT Internal Medicine; ATTEND Internal Medicine
PROC: 0DB98ZX Excision of Duodenum, Via Natural or Artificial Opening Endoscopic, Diagnostic (ICD-10-PCS; principal; 2019-09-22)
PROC: 0DB78ZX Excision of Stomach, Pylorus, Via Natural or Artificial Opening Endoscopic, Diagnostic (ICD-10-PCS; 2019-09-22)
PROC: 0DBK8ZX Excision of Ascending Colon, Via Natural or Artificial Opening Endoscopic, Diagnostic (ICD-10-PCS; 2019-09-22)
PROC: 0DBL8ZX Excision of Transverse Colon, Via Natural or Artificial Opening Endoscopic, Diagnostic (ICD-10-PCS; 2019-09-22)
PROC: 0DBN8ZX Excision of Sigmoid Colon, Via Natural or Artificial Opening Endoscopic, Diagnostic (ICD-10-PCS; 2019-09-22)
PROC: 0DBP8ZX Excision of Rectum, Via Natural or Artificial Opening Endoscopic, Diagnostic (ICD-10-PCS; 2019-09-22)
PROC: 0DBM8ZX Excision of Descending Colon, Via Natural or Artificial Opening Endoscopic, Diagnostic (ICD-10-PCS; 2019-09-22)
DX: K90.0 Celiac disease (principal); N17.9 Acute kidney failure, unspecified; Z20.828 Contact with and (suspected) exposure to other viral communicable diseases; E78.5 Hyperlipidemia, unspecified; I10 Essential (primary) hypertension; J45.909 Unspecified asthma, uncomplicated; E03.9 Hypothyroidism, unspecified; E86.0 Dehydration; M19.90 Unspecified osteoarthritis, unspecified site; F41.9 Anxiety disorder, unspecified; F32.9 Major depressive disorder, single episode, unspecified; Z96.643 Presence of artificial hip joint, bilateral; G47.00 Insomnia, unspecified; E87.6 Hypokalemia; E11.65 Type 2 diabetes mellitus with hyperglycemia; K21.0 Gastro-esophageal reflux disease with esophagitis; K31.9 Disease of stomach and duodenum, unspecified; K64.8 Other hemorrhoids; R63.4 Abnormal weight loss; Z79.4 Long term (current) use of insulin; Z90.710 Acquired absence of both cervix and uterus; Z79.890 Hormone replacement therapy; Z79.51 Long term (current) use of inhaled steroids; S42.91XD Fracture of right shoulder girdle, part unspecified, subsequent encounter for fracture with routine healing; Z68.32 Body mass index [BMI] 32.0-32.9, adult
CPT/HCPCS: 36415; 36416; 80048; 80053; 81003; 81015; 83516; 83605; 83690; 85025; 87177; 87324; 87449; 87635; 88305; 88312; 93005; 96361; 96365; 96375; 96376; G0378; J1644; J1815; J2405; J2704; J3480; Q0162; Q0169; U0003

== ENCOUNTER 2019-12-09 08:13 | Outpatient (CLI) | payer MEDICARE, OTHER ==
--- NOTE | 2019-12-09 11:36 | BD ---
BONE DENSITOMETRY: INDICATION: Postmenopausal screening. FINDINGS: Lumbar Spine: BMD (g/cm2) L1 1.020 T-Score: 0.3 L2 1.101 T-Score: 0.7 L3 1.160 T-Score: 0.7 L4 1.245 T-Score: 1.7 L1-L4 1.140 T-Score: 0.8 Wrist: UD 0.413 T-Score: -0.5 Mid 0.593 T-Score: -0.3 1/3: 0.711 T-Score: 0.3 Total: 0.566 T-Score: -0.2 Impression: The bone mineral density of the lumbar spine and wrist are both within normal range. POS: AGW
== END 2019-12-09 08:14 | disposition home or self-care (01) ==
LOC: BICMAMMO 08:13
PROVIDERS: ATTEND Internal Medicine
DX: Z13.820 Encounter for screening for osteoporosis (principal); K21.9 Gastro-esophageal reflux disease without esophagitis; K90.0 Celiac disease
CPT/HCPCS: 77080

== ENCOUNTER 2021-01-06 13:52 | Outpatient (CLI) | payer MEDICARE, OTHER ==
[2021-01-06 15:54] LABS: #Eosinphils 0.1 10x3/uL (0.0-0.5); #Monocytes 0.5 10x3/uL (0.0-1.1); #Neutrophils 7.6 10x3/uL (1.5-8.4); %Basophils 0.4 % (0.0-2.0); %Eosinophils 1.3 % (0.0-6.0); %Lymphocytes 11.8 % (18.0-47.0); %Monocytes 5.1 % (0.0-10.0); %Neutrophils 80.7 % (40.0-75.0); Hemoglobin 14.8 g/dL (12.0-15.5); Mean Corpuscular HGB CONC 33.9 g/dL (32.0-36.0); Mean Corpuscular Hemoglobin 34.2 pg (27.0-33.0); Mean Corpuscular Volume 100.7 fl (81.6-98.3); Mean Platelet Volume 9.1 fl (7.4-10.4); Platelet Count 333 10x3/uL (150-450); RBC Distribution Width 15.1 % (11.5-14.5); Red Blood Cell (RBC) Count 4.33 10x6/uL (3.90-5.03); White Blood Cell (WBC) Count 9.5 10x3/uL (3.5-10.5)
[2021-01-06 16:16] LABS: Anion Gap 18 mmol/L (10-20); BUN (Urea Nitrogen) 20 mg/dL (9.8-20.1); Calc. Creatinine Clearance 0 mL/min (70-130); Calcium 9.5 mg/dL (7.8-10.44); Carbon Dioxide 26 mmol/L (23-31); Chloride 97 mmol/L (98-107); Glucose 111 mg/dL (83-110); Potassium 4.7 mmol/L (3.5-5.1); Sodium 136 mmol/L (136-145)
[2021-01-07 00:09] LABS: SARS-CoV-2 PCR by NAA Not Detected (NotDetected)
== END 2021-01-06 13:53 | disposition home or self-care (01) ==
LOC: LABBT 13:52
PROVIDERS: ATTEND Surgery
DX: Z01.812 Encounter for preprocedural laboratory examination (principal); K62.3 Rectal prolapse; Z20.822 Contact with and (suspected) exposure to COVID-19
CPT/HCPCS: 80048; 85025; U0003; U0005

== ENCOUNTER 2021-01-11 10:24 | Day surgery (SDC) | payer MEDICARE, OTHER ==
[2021-01-10 12:07] VITALS: BMI 31.6
[2021-01-11] MEDS ORDERED: cefOXitin Sodium/Dextrose 2 GM/50 ML BAG ONE (10:30)
[2021-01-11] MEDS ORDERED: Fentanyl 100 MCG/2 ML VIAL ONE (12:09)
[2021-01-11] MEDS ORDERED: Lidocaine 2% Jelly 5 ML TUBE ONE (12:12)
[2021-01-11] MEDS ORDERED: Lidocaine 1% w/Epinephrine 1:100K 20 ML VIAL ONE (12:12)
[2021-01-11] MEDS ORDERED: Bupivacaine 0.25% HCL 30 ML VIAL ONE (12:12)
[2021-01-11] MEDS ORDERED: PROPOFOL 200 MG/20 ML VIAL ONE (12:17)
[2021-01-11] MEDS ORDERED: PHENYLEPHRINE-NS 100 MCG/ML 10 ML SYRINGE ONE (12:17)
[2021-01-11] MEDS ORDERED: Succinylcholine 200 MG/10 ml SYRINGE FS ONE (12:17)
[2021-01-11] MEDS ORDERED: Lidocaine 1% PF 5 ML VIAL ONE (12:17)
[2021-01-11] MEDS ORDERED: Ondansetron PF 4 MG/2 ML Vial ONE (12:17)
== END 2021-01-11 14:30 | disposition home or self-care (01) ==
LOC: SDC 10:24
PROVIDERS: ATTEND Surgery
PROC: 06BY0ZC Excision of Hemorrhoidal Plexus, Open Approach (ICD-10-PCS; principal; 2021-01-11)
DX: K64.8 Other hemorrhoids (principal); I10 Essential (primary) hypertension; E03.9 Hypothyroidism, unspecified; E10.9 Type 1 diabetes mellitus without complications; K21.9 Gastro-esophageal reflux disease without esophagitis; M54.9 Dorsalgia, unspecified; G89.29 Other chronic pain; J45.909 Unspecified asthma, uncomplicated; Z96.641 Presence of right artificial hip joint; Z90.710 Acquired absence of both cervix and uterus; Z98.890 Other specified postprocedural states; Z79.4 Long term (current) use of insulin; Z88.0 Allergy status to penicillin; Z88.2 Allergy status to sulfonamides; Z91.018 Allergy to other foods; Z79.52 Long term (current) use of systemic steroids; Z79.51 Long term (current) use of inhaled steroids; Z79.899 Other long term (current) drug therapy
CPT/HCPCS: 88304; J0694; J2405; J2704; J3010; S0020

== ENCOUNTER 2021-09-07 06:54 | Emergency (ER) | payer OTHER, MEDICARE ==
[2021-09-07] MEDS ORDERED: Ondansetron PF 4 MG/2 ML Vial ONE (07:32)
[2021-09-07] MEDS ORDERED: Fentanyl 100 MCG/2 ML VIAL ONE ×2 (07:32→08:09)
[2021-09-07] MEDS ORDERED: Ketorolac Tromethamine 30 MG/ML VIAL ONE (07:32)
[2021-09-07 07:33] LABS: #Basophils 0.1 thou/uL (0.0-0.2); #Eosinphils 0.8 thou/uL (0.0-0.7); #Lymphocytes 1.5 thou/uL (1.20-3.40); #Monocytes 0.9 thou/uL (0.11-0.59); #Neutrophils 7.9 thou/uL (1.40-6.50); %Basophils 0.7 % (0.0-1.0); %Eosinophils 6.8 % (0.0-10.0); %Lymphocytes 13.4 % (21.0-51.0); %Monocytes 8.1 % (0.0-10.0); %Neutrophils 70.9 % (42.0-75.0); Hemoglobin 14.5 g/dL (12.0-16.0); Mean Corpuscular Hemoglobin 35.2 pg (27.0-31.0); Mean Platelet Volume 6.8 fL (7.4-10.4); Platelet Count 220 thou/uL (130-400); Red Blood Cell (RBC) Count 4.13 mill/uL (4.20-5.40); White Blood Cell (WBC) Count 11.1 thou/uL (4.8-10.8)
[2021-09-07 07:51] LABS: ALT (SGPT) 66 U/L (8-55); AST (SGOT) 33 U/L (5-34); Albumin 4.5 g/dL (3.4-4.8); Alkaline Phosphatase 99 U/L (40-110); Anion Gap 17 mmol/L (10-20); BUN (Urea Nitrogen) 19 mg/dL (9.8-20.1); Bilirubin, Total 0.7 mg/dL (0.2-1.2); Calc. Creatinine Clearance 0 mL/min (70-130); Calcium 9.6 mg/dL (7.8-10.44); Carbon Dioxide 27 mmol/L (23-31); Chloride 93 mmol/L (98-107); Estimated GFR 49; Globulin 2.3 g/dL (2.4-3.5); Glucose 195 mg/dL (83-110); Lipase 24 U/L (8-78); Protein, Total 6.8 g/dL (5.8-8.1); Sodium 132 mmol/L (136-145)
[2021-09-07 08:16] LABS: INR-International Normal Ratio 0.9; PTT 29.4 sec (22.9-36.1); Prothrombin Time 11.8 sec (12.0-14.7)
[2021-09-07] MEDS ORDERED: Ketamine 50 MG/ML (10ML VIAL) ONE (08:57)
[2021-09-07] MEDS ORDERED: PROPOFOL 20 ML ONE (09:01)
== END 2021-09-07 10:19 | disposition home or self-care (01) ==
LOC: ERS 06:54
DX: S82.51XA Displaced fracture of medial malleolus of right tibia, initial encounter for closed fracture (principal); E78.5 Hyperlipidemia, unspecified; I10 Essential (primary) hypertension; E03.9 Hypothyroidism, unspecified; E11.9 Type 2 diabetes mellitus without complications; Z79.4 Long term (current) use of insulin; W01.0XXA Fall on same level from slipping, tripping and stumbling without subsequent striking against object, initial encounter
CPT/HCPCS: 27818; 36416; 80053; 83690; 85025; 85610; 85730; 93005; 96374; 96375; 96376; 99152; J1885; J2405; J2704; J3010

== ENCOUNTER 2021-09-11 10:26 | Outpatient (CLI) | payer MEDICARE, OTHER ==
[2021-09-11 11:14] LABS: Hemoglobin 12.7 g/dL (12.0-15.5); Mean Corpuscular HGB CONC 32.7 g/dL (32.0-36.0); Mean Corpuscular Hemoglobin 33.5 pg (27.0-33.0); Mean Corpuscular Volume 102.4 fl (81.6-98.3); Mean Platelet Volume 9.6 fl (7.4-10.4); Platelet Count 214 10x3/uL (150-450); RBC Distribution Width 12.6 % (11.5-14.5); Red Blood Cell (RBC) Count 3.79 10x6/uL (3.90-5.03); White Blood Cell (WBC) Count 9.2 10x3/uL (3.5-10.5)
[2021-09-11 11:58] LABS: Anion Gap 15 mmol/L (10-20); BUN (Urea Nitrogen) 28 mg/dL (9.8-20.1); Calc. Creatinine Clearance 0 mL/min (70-130); Calcium 9.8 mg/dL (7.8-10.44); Carbon Dioxide 30 mmol/L (23-31); Chloride 96 mmol/L (98-107); Estimated GFR 54; Glucose 190 mg/dL (83-110); Potassium 5.2 mmol/L (3.5-5.1); Sodium 136 mmol/L (136-145)
== END 2021-09-11 10:27 | disposition home or self-care (01) ==
LOC: LABBT 10:26
PROVIDERS: ATTEND Orthopaedic Surgery
DX: Z01.812 Encounter for preprocedural laboratory examination (principal); S82.841A Displaced bimalleolar fracture of right lower leg, initial encounter for closed fracture; Z20.822 Contact with and (suspected) exposure to COVID-19
CPT/HCPCS: 80048; 85027; 87811

== ENCOUNTER 2021-09-13 10:14 | Inpatient (IN) | payer MEDICARE, OTHER ==
[2021-09-12 13:13] VITALS: BMI 33.2
[2021-09-13] MEDS ORDERED: fentaNYL Citrate/PF 100 MCG/2 ML SYRINGE ONE ×2 (11:48→14:36)
[2021-09-13] MEDS ORDERED: Clindamycin/D5W 900 mg/50 ml Premix Bag ONE (12:17)
[2021-09-13] MEDS ORDERED: Levofloxacin 500 mg/D5W 100 ml Premix Bag ONE (12:17)
[2021-09-13] MEDS ORDERED: Bupivacaine PF 0.5% 30 ML VIAL ONE (12:18)
[2021-09-13] MEDS ORDERED: PROPOFOL 200 MG/20 ML VIAL ONE (12:35)
[2021-09-13] MEDS ORDERED: Lidocaine 1% PF 5 ML VIAL ONE (12:35)
[2021-09-13] MEDS ORDERED: Ondansetron PF 4 MG/2 ML Vial ONE (12:35)
[2021-09-13] MEDS ORDERED: ePHEDrine 50 MG/ML VIAL ONE (12:35)
[2021-09-13] MEDS ORDERED: Scopolamine 1.5 mg/72 hour Patch ONE (13:00)
[2021-09-13] MEDS ORDERED: HYDROcodone/Acetaminophen 5/325 mg Tablet PO PRN (14:10)
[2021-09-13] MEDS ORDERED: Ondansetron PF 4 MG/2 ML Vial IVP PRN (14:10)
[2021-09-13] MEDS ORDERED: Communication Order-Pharmacy FS SCH (14:15)
[2021-09-13] MEDS ORDERED: Fentanyl 100 MCG/2 ML VIAL ONE (15:39)
[2021-09-13] MEDS ORDERED: Dextrose 50% Abboject 50 ML SYRINGE IVP PRN (15:45)
[2021-09-13] MEDS ORDERED: Dextrose 5% in Water 1,000 ML IV PRN (15:45)
[2021-09-13] MEDS: Mometasone 200 MCG/Formoterol 5 MCG 120 PUFF INHALER INH SCH (18:35)
[2021-09-13] MEDS: HYDROcodone/Acetaminophen 5/325 mg Tablet PO PRN ×2 (19:20→23:05)
[2021-09-13] MEDS: Cyclobenzaprine 10 MG TAB PO PRN (20:48)
[2021-09-13] MEDS: Rosuvastatin 20 MG TAB PO SCH (20:48)
[2021-09-13] MEDS: Insulin Glargine 30 UNITS/0.3 ML VIAL SC SCH (20:48)
[2021-09-13] MEDS: Colchicine 0.6 MG TAB PO SCH (20:48)
[2021-09-13] MEDS: Aspirin 81 mg Enteric Coated Tablet PO SCH (20:48)
[2021-09-14] MEDS: HYDROcodone/Acetaminophen 5/325 mg Tablet PO PRN ×4 (02:30→15:19)
[2021-09-14] MEDS: Mometasone 200 MCG/Formoterol 5 MCG 120 PUFF INHALER INH SCH ×2 (07:04→18:30)
[2021-09-14] MEDS: Colchicine 0.6 MG TAB PO SCH ×2 (08:26→19:38)
[2021-09-14] MEDS: Aspirin 81 mg Enteric Coated Tablet PO SCH ×2 (08:26→19:38)
[2021-09-14] MEDS ORDERED: UBIDECARENONE 75 MG PO SCH (09:00)
[2021-09-14] MEDS ORDERED: Loratadine 10 MG TAB PO SCH (09:00)
[2021-09-14] MEDS ORDERED: Fish Oil 1,000 MG CAP PO SCH (09:00)
[2021-09-14] MEDS ORDERED: predniSONE 5 MG TAB PO SCH (09:00)
[2021-09-14] MEDS ORDERED: Venlafaxine HCl XR 75 MG CAP PO SCH (09:00)
[2021-09-14] MEDS ORDERED: Losartan 25 MG TAB PO SCH (09:00)
[2021-09-14] MEDS ORDERED: Levothyroxine Sodium 112 MCG TAB PO SCH (09:00)
[2021-09-14] MEDS: Cyclobenzaprine 10 MG TAB PO PRN (11:14)
[2021-09-14 18:18] VITALS: BP 94/54; TEMP 98.5
[2021-09-14] MEDS: Insulin Glargine 30 UNITS/0.3 ML VIAL SC SCH (19:38)
[2021-09-14] MEDS: Rosuvastatin 20 MG TAB PO SCH (19:38)
== END 2021-09-14 20:30 | DRG 494 ==
LOC: SDC 10:14 → SJJU 14:10
PROVIDERS: ADMIT Orthopaedic Surgery; ATTEND Orthopaedic Surgery
PROC: 0QSJ04Z Reposition Right Fibula with Internal Fixation Device, Open Approach (ICD-10-PCS; principal; 2021-09-13)
PROC: 0QSG04Z Reposition Right Tibia with Internal Fixation Device, Open Approach (ICD-10-PCS; 2021-09-13)
DX: S82.841A Displaced bimalleolar fracture of right lower leg, initial encounter for closed fracture (principal); Z88.2 Allergy status to sulfonamides; Z91.018 Allergy to other foods; Z88.0 Allergy status to penicillin
CPT/HCPCS: 36416; 76000; 80048; 85027; 87811; 94664; C1713; J1815; J1956; J2405; J2704; J3010; J3490; J7512; S0020

== ENCOUNTER 2023-02-16 01:50 | Emergency (ER) | payer MEDICARE, OTHER ==
[2023-02-16] MEDS ORDERED: HYDROcodone/Acetaminophen 5/325 mg Tablet ONE (02:32)
[2023-02-16 03:23] LABS: #Basophils 0.1 thou/uL (0.0-0.2); #Monocytes 0.6 thou/uL (0.11-0.59); #Neutrophils 5.9 thou/uL (1.40-6.50); %Basophils 0.8 % (0.0-1.0); %Lymphocytes 16.1 % (21.0-51.0); %Monocytes 6.2 % (0.0-10.0); %Neutrophils 57.7 % (42.0-75.0); Hematocrit 43.9 % (36.0-47.0); Hemoglobin 14.8 g/dL (12.0-16.0); Mean Corpuscular HGB CONC 33.7 g/dL (32.0-36.0); Mean Corpuscular Volume 97.8 fl (78.0-98.0); Mean Platelet Volume 9.8 fL (7.4-10.4); Platelet Count 223 10x3/uL (130-400); RBC Distribution Width 13.6 % (11.5-14.5); Red Blood Cell (RBC) Count 4.49 mill/uL (4.20-5.40); White Blood Cell (WBC) Count 10.3 10x3/uL (4.8-10.8)
[2023-02-16 03:46] LABS: ALT (SGPT) 14 U/L (8-55); AST (SGOT) 16 U/L (5-34); Alkaline Phosphatase 114 U/L (40-110); Anion Gap 15 mmol/L (10-20); BUN (Urea Nitrogen) 21 mg/dL (9.8-20.1); Bilirubin, Total 0.4 mg/dL (0.2-1.2); Calc. Creatinine Clearance 0 mL/min (70-130); Calcium 9.3 mg/dL (7.8-10.44); Carbon Dioxide 26 mmol/L (23-31); Chloride 101 mmol/L (98-107); Estimated GFR 59; Globulin 2.9 g/dL (2.4-3.5); Glucose 124 mg/dL (83-110); Potassium 4.2 mmol/L (3.5-5.1); Protein, Total 6.9 g/dL (5.8-8.1); Sodium 138 mmol/L (136-145)
[2023-02-16 05:33] LABS: Bacteria/HPF Rare-Few HPF (None Seen); Bilirubin Negative (Negative); Blood, Urine Trace (Negative); CAUTI Indications for Culture Pelvic or flank pain; Clarity Turbid (Clear); Glucose, Urine (Dipstick) Normal (Negative); Ketone, Urine Negative (Negative); Leukocyte 500 Leu/uL (Negative); Nitrite Negative (Negative); Protein, Urine (Dipstick) 20 mg/dL (Neg-Trace); Specific Gravity, Urine 1.033 (1.002-1.036); WBC/HPF Greater than 50 HPF (0-3); pH, Urine 5.5 (5.0-9.0)
[2023-02-16 05:34] LABS: Urine Culture Reflex Yes Yes
== END 2023-02-16 05:43 | disposition home or self-care (01) ==
LOC: ERS 01:50
DX: N39.0 Urinary tract infection, site not specified (principal); E11.9 Type 2 diabetes mellitus without complications; E78.5 Hyperlipidemia, unspecified
CPT/HCPCS: 36415; 74176; 80053; 81001; 85025; 87086

== ENCOUNTER 2025-02-13 15:14 | Emergency (ER) | payer MEDICARE, OTHER ==
[2025-02-13] MEDS ORDERED: Dexamethasone 10 MG/ML VIAL ONE (16:08)
[2025-02-13 16:14] LABS: #Basophils 0.05 10x3/uL (0.0-0.2); #Eosinophils 0.94 10x3/uL (0.0-0.7); #Monocytes 0.62 10x3/uL (0.11-0.59); #Neutrophils 5.42 10x3/uL (1.40-6.50); %Basophils 0.6 % (0.0-1.0); %Eosinophils 11.5 % (0.0-10.0); %Lymphocytes 14.0 % (21.0-51.0); %Monocytes 7.6 % (0.0-10.0); %Neutrophils 66.1 % (42.0-75.0); Hematocrit 39.6 % (36.0-47.0); Hemoglobin 13.5 g/dL (12.0-16.0); Mean Corpuscular Hemoglobin 33.4 pg (27.0-31.0); Mean Corpuscular Volume 98.0 fL (78.0-98.0); Platelet Count 199 10x3/uL (130-400); Red Blood Cell (RBC) Count 4.04 mill/uL (4.20-5.40); White Blood Cell (WBC) Count 8.20 10x3/uL (4.8-10.8)
[2025-02-13 16:30] LABS: ALT (SGPT) 17 U/L (Less than 34); AST (SGOT) 26 U/L (11-34); Albumin 3.8 g/dL (3.1-4.5); Alkaline Phosphatase 121 U/L (40-110); Anion Gap 9 mmol/L (10-20); BUN (Urea Nitrogen) 13 mg/dL (9.8-20.1); Bilirubin, Total 0.5 mg/dL (0.3-1.2); Calc. Creatinine Clearance 0 mL/min (70-130); Calcium 9.2 mg/dL (7.8-10.44); Carbon Dioxide 28 mmol/L (23-31); Chloride 102 mmol/L (98-107); Globulin 2.8 g/dL (2.4-3.5); Glucose 134 mg/dL (83-110); Potassium 5.0 mmol/L (3.5-5.1); Sodium 134 mmol/L (136-145)
[2025-02-13] MEDS ORDERED: Acetaminophen 500 MG TAB ONE (18:53)
== END 2025-02-13 18:58 | disposition home or self-care (01) ==
LOC: ERS 15:14
DX: S70.01XA Contusion of right hip, initial encounter (principal); E11.9 Type 2 diabetes mellitus without complications; I10 Essential (primary) hypertension; W19.XXXA Unspecified fall, initial encounter; R06.2 Wheezing
CPT/HCPCS: 70450; 71045; 72125; 72131; 72192; 80053; 84484; 85025; 93005; 94760; 96374; 99284; J1100

== ENCOUNTER 2025-02-25 14:39 | Emergency (ER) | payer MEDICARE ==
[2025-02-25] MEDS ORDERED: Dexamethasone 10 MG/ML VIAL ONE (16:15)
[2025-02-25] MEDS ORDERED: Ketorolac Tromethamine 30 MG (1 mL) VIAL ONE (16:15)
[2025-02-25 16:24] LABS: #Basophils 0.07 10x3/uL (0.0-0.2); #Eosinophils 0.44 10x3/uL (0.0-0.7); #Monocytes 0.89 10x3/uL (0.11-0.59); #Neutrophils 7.89 10x3/uL (1.40-6.50); %Basophils 0.7 % (0.0-1.0); %Eosinophils 4.3 % (0.0-10.0); %Lymphocytes 8.1 % (21.0-51.0); %Monocytes 8.8 % (0.0-10.0); %Neutrophils 77.8 % (42.0-75.0); Hematocrit 42.6 % (36.0-47.0); Hemoglobin 14.3 g/dL (12.0-16.0); Mean Corpuscular Hemoglobin 33.3 pg (27.0-31.0); Mean Corpuscular Volume 99.3 fL (78.0-98.0); Platelet Count 223 10x3/uL (130-400); Red Blood Cell (RBC) Count 4.29 mill/uL (4.20-5.40); White Blood Cell (WBC) Count 10.14 10x3/uL (4.8-10.8)
[2025-02-25 16:38] LABS: ALT (SGPT) 29 U/L (Less than 34); AST (SGOT) 23 U/L (11-34); Albumin 3.7 g/dL (3.1-4.5); Alkaline Phosphatase 258 U/L (40-110); Anion Gap 20 mmol/L (10-20); BUN (Urea Nitrogen) 12 mg/dL (9.8-20.1); Bilirubin, Total 0.7 mg/dL (0.3-1.2); Calc. Creatinine Clearance 0 mL/min (70-130); Calcium 9.6 mg/dL (7.8-10.44); Carbon Dioxide 26 mmol/L (23-31); Chloride 99 mmol/L (98-107); Globulin 3.0 g/dL (2.4-3.5); Glucose 222 mg/dL (83-110); Potassium 4.3 mmol/L (3.5-5.1); Sodium 141 mmol/L (136-145)
== END 2025-02-25 20:27 ==
LOC: ERS 14:39
DX: S32.592A Other specified fracture of left pubis, initial encounter for closed fracture (principal); S32.591A Other specified fracture of right pubis, initial encounter for closed fracture; E11.9 Type 2 diabetes mellitus without complications; I10 Essential (primary) hypertension; E03.9 Hypothyroidism, unspecified; E78.5 Hyperlipidemia, unspecified; Z79.4 Long term (current) use of insulin; Z79.899 Other long term (current) drug therapy; Z79.890 Hormone replacement therapy; W19.XXXA Unspecified fall, initial encounter
CPT/HCPCS: 72192; 80053; 85025; 86141; 93971; 96374; 96375; 96376; 99285; J1100; J1885; J2270; J2272